=== PATIENT | male | born 1955 | race Caucasian/White ===

== ENCOUNTER → 2018-06-04 09:42 | Outpatient (CLI) | payer MEDICARE, OTHER, SELFPAY ==
[2018-06-04 13:36] LABS: Absolute Lymphocyte Count 1.48 X10^3/ul (0.83-4.51); Absolute Neutrophil Count 4.1 X10^3/uL (2.0-7.7); Basophil# 0.03 X10^3/uL; Basophil% 0.5 % (0-1); Eosinophil# 0.21 X10^3/uL; Eosinophils% 3.2 % (0-5); Hemoglobin 14.9 g/dl (13.0-16.5); Lymphocyte # 1.48 X10^3/ul (4.0); Lymphocyte % 22.5 % (19-41); Mean Corp Hgb Conc 33.9 g/gl (32-36); Mean Corpuscular Hgb 31.3 pg (27.0-32.0); Mean Corpuscular Volume 92.4 fL (80-94); Mean Platelet Vol. 10.6 fl (6.2-12.0); Monocyte# 0.73 X10^3/uL; Monocyte% 11.1 % (0-10); Neutrophil # 4.12 X10^3/uL (2.7-7.7); Neutrophil % 62.4 % (47-70); POSITIVE COUNT NO; POSITIVE DIFFERENTIAL NO; POSITIVE MORPHOLOGY NO; Platelet Count 342 K/mm3 (150-450); RBC Distribution Width CV 12.7 % (11.6-14.6); RBC Distribution Width SD 42.6 fl (35.1-43.9); Red Blood Count 4.76 M/mm3 (4.6-6.2); White Blood Count 6.6 K/mm3 (4.4-11.0)
[2018-06-04 13:55] LABS: Vitamin D,25 Hydroxy 26.1 ng/mL (29.95-100.01)
[2018-06-04 14:04] LABS: ALB/GLOB Ratio 1.3 RATIO (0.9-2.4); AST(SGOT) 25 U/L (15-37); Alanine Aminotransfer ALT/SGPT 36 U/L (16-61); Albumin, Serum 4.4 g/dL (3.2-5.0); Alkaline Phosphatase 86 U/L (45-117); Anion Gap 9 (5-15); BUN 23 mg/dL (7-18); BUN/Creat Ratio 21.7 RATIO (10-20); Calcium,Total 8.9 mg/dL (8.5-10.1); Chloride 104 mmol/L (98-107); Creatinine, Serum 1.06 mg/dL (0.70-1.30); EST Glomerular Filtration Rate 75 mL/min (>60); Est Glom Filt Rate - Afr Amer 90 mL/min (>60); Globulin 3.3 g/dL (2.2-4.2); Glucose 92 mg/dL (74-106); PSA,Total - Annual Screen 0.59 ng/mL (0.00-4.00); Potassium 4.1 mmol/L (3.5-5.1); Protein, Total 7.7 g/dL (6.4-8.2); Sodium Level 140 mmol/L (136-145); Thyroid Stim Hormone (TSH) 1.75 uIU/mL (0.358-3.74)
[2018-06-05 10:47] LABS: Hep C Antibodies <0.1 s/co ratio (0.0-0.9)
== END ==
PROVIDERS: Family Provider Family Medicine Geriatric Medicine; PCP Family Medicine Geriatric Medicine; Visit Provider Family Medicine Geriatric Medicine
DX: M54.16 Radiculopathy, lumbar region (principal); M25.569 Pain in unspecified knee; E55.9 Vitamin D deficiency, unspecified; I10 Essential (primary) hypertension; Z12.5 Encounter for screening for malignant neoplasm of prostate; Z13.89 Encounter for screening for other disorder
CPT/HCPCS: 36415; 72100; 73564; 80053; 82306; 84153; 84443; 85025; 86803; G0103

== ENCOUNTER → 2019-06-05 08:44 | Outpatient (CLI) | payer MEDICARE, OTHER, SELFPAY ==
[2019-06-05 11:04] LABS: Absolute Neutrophil Count 5.7 X10^3/uL (2.0-7.7); Basophil# 0.04 X10^3/uL; Basophil% 0.5 % (0-1); Eosinophil# 0.11 X10^3/uL; Eosinophils% 1.4 % (0-5); Hematocrit 43.2 % (40-54); Hemoglobin 14.6 g/dL (13.0-16.5); Lymphocyte % 17.7 % (19-41); Mean Corp Hgb Conc 33.8 g/dL (32-36); Mean Corpuscular Hgb 31.3 pg (27.0-32.0); Mean Corpuscular Volume 92.5 fL (80-94); Mean Platelet Vol. 10.2 fl (6.2-12.0); Monocyte# 0.58 X10^3/uL; Monocyte% 7.3 % (0-10); NRBC Flagged by Analyzer 0 % (0-5); Neutrophil # 5.73 X10^3/uL (2.7-7.7); Neutrophil % 72.5 % (47-70); Platelet Count 288 K/mm3 (150-450); RBC Distribution Width CV 14.2 % (11.6-14.6); RBC Distribution Width SD 48.2 fl (35.1-43.9); Red Blood Count 4.67 M/mm3 (4.6-6.2); White Blood Count 7.9 K/mm3 (4.4-11.0)
[2019-06-05 11:22] LABS: Vitamin D,25 Hydroxy 26.6 ng/mL (29.95-100.01)
[2019-06-05 11:30] LABS: ALB/GLOB Ratio 1.4 RATIO (0.9-2.4); AST(SGOT) 21 U/L (15-37); Alanine Aminotransfer ALT/SGPT 41 U/L (16-61); Albumin, Serum 4.1 g/dL (3.2-5.0); Alkaline Phosphatase 87 U/L (45-117); Anion Gap 5 (5-15); BUN 22 mg/dL (7-18); BUN/Creat Ratio 21.4 RATIO (10-20); Calcium,Total 8.7 mg/dL (8.5-10.1); Chloride 105 mmol/L (98-107); Creatinine, Serum 1.03 mg/dL (0.70-1.30); EST Glomerular Filtration Rate 77 mL/min (>60); Est Glom Filt Rate - Afr Amer 93 mL/min (>60); Glucose 138 mg/dL (74-106); PSA,Total - Annual Screen 0.58 ng/mL (0.00-4.00); Potassium 3.8 mmol/L (3.5-5.1); Protein, Total 7.1 g/dL (6.4-8.2); Sodium Level 139 mmol/L (136-145); Thyroid Stim Hormone (TSH) 1.53 uIU/mL (0.358-3.74)
== END ==
PROVIDERS: Family Provider Family Medicine Geriatric Medicine; PCP Family Medicine Geriatric Medicine; Visit Provider Family Medicine Geriatric Medicine
DX: E55.9 Vitamin D deficiency, unspecified (principal); I10 Essential (primary) hypertension; Z12.5 Encounter for screening for malignant neoplasm of prostate
CPT/HCPCS: 36415; 80053; 82306; 84153; 84443; 85025; G0103

== ENCOUNTER 2020-02-06 20:19 | Emergency (ER) | payer MEDICARE, OTHER, SELFPAY ==
--- NOTE | 2020-02-06 20:22 | CM.ED ---
SOCIAL WORK RESPONDED TO STROKE ALERT. PATIENT BEING TAKEN TO CT. WILL REMAIN AVAILABLE FOR NEEDS. Alee WELLS, COOKING CHEF, AUTOMATIC BUFFER.
--- NOTE | 2020-02-06 20:22 | EKG12_ITS ---
Test Reason : NEURO Blood Pressure : / mmHG Vent. Rate : 065 BPM Atrial Rate : 065 BPM P-R Int : 186 ms QRS Dur : 098 ms QT Int : 434 ms P-R-T Axes : 039 -21 008 degrees QTc Int : 451 ms Normal sinus rhythm Voltage criteria for left ventricular hypertrophy Abnormal ECG Confirmed by AMINATA NIEVES, GORDON ([id number]), society editor JANINE THORPE ([id number]) on 02/10/2020 2:22:41 PM Referred By: KATHIE Confirmed By:GORDON COATES MD
--- NOTE | 2020-02-06 20:22 | CT_ITS ---
We are attempting to reach an attending provider to discuss findings. An addendum with communication details will be sent when the communication is complete. STUDY: CT BRAIN WITHOUT CONTRAST REASON FOR EXAM: Male, 64 years old. CVA RADIATION DOSAGE (If Supplied By Facility): CTDIvol = ( 44.99 ) mGy, DLP = ( 812.98 ) mGycm TECHNIQUE: Transaxial CT imaging of the brain was performed without administration of intravenous contrast material. Individualized dose optimization techniques were used for this CT. COMPARISON: No relevant priors. FINDINGS: Normal soft tissue structures. Normal calvarium. Calcification of cavernous carotids and vertebral arteries.. Mild cortical atrophy for the patient''s age. Mild periventricular white matter ischemic changes Normal basal ganglia and thalami. Normal brainstem. Normal cerebellum. There is no intracranial hemorrhage. There are no findings of an acute ischemic infarction. Normal visualized paranasal sinuses. CT/Brain/Head without Contrast IMPRESSION: Mild periventricular white matter ischemic change. No evidence for acute bleed. If concern for acute infarct MRI recommended. Electronically Signed: Rocky Andre MD at 21:05 EDT , Service support ,
[2020-02-06 20:26] VITALS: BP 131/85; PULSE 68; RESP 19; TEMP 35.8; O2SAT 94
[2020-02-06 20:33] VITALS: BP 131/85; PULSE 68; RESP 19; TEMP 35.8; O2SAT 94; BMI 31.8
[2020-02-06 20:35] VITALS: O2SAT 95
[2020-02-06 20:37] VITALS: BMI 31.8
--- NOTE | 2020-02-06 20:42 | ED.VIS.GEN ---
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 Per EMS report called EMS when she noted slurred speech and uncoordination to his right leg. She last saw him at 10 PM last evening and it was normal at that time. Blood sugar was 118. - Past Medical History (1) Hypertension Status: Chronic (2) High cholesterol Status: Chronic Past Medical History - Allergies and Home Meds Allergies/Adverse Reactions: Allergies No Known Allergies Allergy (Verified 02/06/20 20:36) Primary Care Physician: Donny Abbasi Chi, MD [Primary Care Provider] - Prior records reviewed: Yes Lives: Spouse/ Significant Other Smoking Status: Never smoker Review of Systems General: Denies: Chills, Fever Eyes: Denies: Visual changes - bilaterally ENT: Denies: Bilateral ear pain Cardiovascular: Denies: Chest pain Respiratory: Denies: Dyspnea, Cough Gastrointestinal: Denies: Abdominal pain, Nausea, Vomiting, Diarrhea Genitourinary: Denies: Dysuria Musculoskeletal: Denies: Extremity Pain Neurological: Denies: Headache, Parasthesia Endocrine: Denies: Polyuria, Polydipsia Allergy: Denies: Uticaria Physical Exam Vital Signs/Narrative: Vital Signs Temp Pulse Resp BP Pulse Ox 02/06/20 20:35 95 02/06/20 20:33 96.5 F L 68 19 H 131/85 H 94 02/06/20 20:26 96.5 F L 68 19 H 131/85 H 94 Inital Vital Signs reviewed: Yes General: Well nourished, Well developed Head: Normocephalic ENT: Moist mucous membranes Neck: Supple Cardiovascular: Regular rate, Regular rhythm Respiratory: No distress, CTA bilaterally Abdomen: Soft, Nontender Skin: Normal color Neurological: Alert, Oriented x3, - - On arrival patient had very mild drift of his left lower extremity on testing. NIH equals 1. Psychological: Normal affect Diagnostic/Tx/Re-eval Impressions Brain CT 02/06/20 20:22 IMPRESSION: Mild periventricular white matter ischemic change. No evidence for acute bleed. If concern for acute infarct MRI recommended. Electronically Signed: Rocky Andre MD at 21:05 EDT , Service support , ADDENDUM: 02/06/202113 IMPRESSION: Mild periventricular white matter ischemic change. No evidence for acute bleed. If concern for acute infarct MRI recommended. N.B. : The above information has been verbally conveyed by Rocky Andre MD to Jhon Bernabe MD, on 02/06/2020 21:07:33 (ET). Electronically Signed: Rocky Andre MD at 21:05 EDT , Service support , Chest X-Ray 02/06/20 20:55 IMPRESSION: Diminished inspiratory effort. No acute disease Electronically Signed: Rocky Andre MD at 21:14 EDT , Service support , 02/06/20 20:22 Brain/Head without Contrast [CT] Stat 02/06/20 20:55 Chest 1 View [RAD] Stat Laboratory Results 02/06/20 02/06/20 02/06/20 20:39 20:39 20:39 WBC 8.3 RBC 4.74 Hgb 15.0 Hct 44.0 MCV 92.8 MCH 31.6 MCHC 34.1 RDW Std Deviation 43.2 RDW Coeff of Justo 12.8 Plt Count 265 MPV 9.8 Immature Gran % (Auto) 0.400 Neut % (Auto) 58.7 Lymph % (Auto) 25.5 Henry % (Auto) 13.2 H Eos % (Auto) 1.5 Baso % (Auto) 0.7 Absolute Neuts (auto) 4.9 Absolute Lymphs (auto) 2.11 Nucleated RBC % 0 PT 12.7 INR 1.0 APTT 29.8 Sodium 139 Potassium 3.8 Chloride 102 Carbon Dioxide 29.0 Anion Gap 8 BUN 17 Creatinine 0.92 Estim Creat Clear Calc 76.41 Est GFR (MDRD) Af Amer 106 Est GFR (MDRD) Non-Af 88 BUN/Creatinine Ratio 18.6 Glucose 97 Calcium 9.0 Troponin I < 0.015 - EKG Initial EKG Interpretation: Sinus Rhythm - Sinus at 65 with no acute ischemia. - Medical Decision Making Patient was met inside the EMS doors. Initial evaluation was quickly performed with an NIH of 1 at most. Patient was taken to CT and upon return patient admitted that there was more to the story. He did admit at that time that patient had an outpatient vasectomy performed this afternoon. He was given medication for sedation for the procedure. His is not aware that he had this performed. Patient states that he was just tired, but otherwise feels his normal self. Repeat evaluation patient's resting comfortably. He is requesting discharge to home. He was able to get up and ambulate up and down the hallway with nursing staff with steady gait. I believe his symptoms are secondary to sedation from the medications he was given earlier today. He will be discharged home. ED Disposition - Plan for ED Patient: Disposition: Home or Assisted Living Diagnosis: Weakness Instructions: ED Weakness [facility] Referrals: Donny Abbasi Chi, MD [Primary Care Provider] -
--- NOTE | 2020-02-06 20:55 | RAD_ITS ---
STUDY: X-RAY CHEST REASON FOR EXAM: Male, 64 years old. STROKE TECHNIQUE: AP portable COMPARISON: None. FINDINGS: Less than optimal inspiratory effort is seen however the lungs are clear.. There is no demonstrated pleural abnormality. Normal size heart. Normal mediastinum and eber. Normal visualized pulmonary arteries. Normal visualized aortic arch and descending thoracic aorta. Dorsal spine demonstrates degenerative change Normal visualized ribs, clavicles, and shoulders. Small hiatal hernia is noted There is no demonstrated abnormality of the visualized soft tissue structures of the upper abdomen. RAD/Chest 1 View IMPRESSION: Diminished inspiratory effort. No acute disease Electronically Signed: Rocky Andre MD at 21:14 EDT , Service support ,
[2020-02-06 21:03] LABS: Absolute Lymphocyte Count 2.11 X10^3/uL (0.83-4.51); Absolute Neutrophil Count 4.9 X10^3/uL (2.0-7.7); Basophil# 0.06 X10^3/uL; Basophil% 0.7 % (0-1); Eosinophil# 0.12 X10^3/uL; Eosinophils% 1.5 % (0-5); Lymphocyte # 2.11 X10^3/ul (4.0); Lymphocyte % 25.5 % (19-41); Mean Corp Hgb Conc 34.1 g/dL (32-36); Mean Corpuscular Hgb 31.6 pg (27.0-32.0); Mean Corpuscular Volume 92.8 fL (80-94); Mean Platelet Vol. 9.8 fl (6.2-12.0); Monocyte# 1.09 X10^3/uL; Monocyte% 13.2 % (0-10); NRBC Flagged by Analyzer 0 % (0-5); Neutrophil # 4.85 X10^3/uL (2.7-7.7); Neutrophil % 58.7 % (47-70); Platelet Count 265 K/mm3 (150-450); RBC Distribution Width CV 12.8 % (11.6-14.6); RBC Distribution Width SD 43.2 fl (35.1-43.9); Red Blood Count 4.74 M/mm3 (4.6-6.2); White Blood Count 8.3 K/mm3 (4.4-11.0)
[2020-02-06 21:08] LABS: Partial Thromboplast Time 29.8 Seconds (24.1-36.2); Prothrombin Time (Protime)PT. 12.7 SECONDS (11.7-14.9)
[2020-02-06 21:09] LABS: Anion Gap 8 (5-15); BUN 17 mg/dL (7-18); BUN/Creat Ratio 18.6 RATIO (10-20); Chloride 102 mmol/L (98-107); Creatinine, Serum 0.92 mg/dL (0.70-1.30); EST Glomerular Filtration Rate 88 mL/min (>60); Est Glom Filt Rate - Afr Amer 106 mL/min (>60); Estimated Creatinine Clearance 76.41 ml/min; Glucose 97 mg/dL (74-106); Potassium 3.8 mmol/L (3.5-5.1); Sodium Level 139 mmol/L (136-145)
[2020-02-06 21:31] VITALS: BP 110/96; PULSE 69; RESP 17; O2SAT 96
[2020-02-06 22:16] VITALS: BP 110/96; PULSE 65; PULSE 74; RESP 14; RESP 16; O2SAT 93
== END 2020-02-06 22:29 | disposition home or self-care (01) ==
PROVIDERS: Emergency Provider Emergency Medicine; PCP Family Medicine Geriatric Medicine
DX: R53.1 Weakness (principal)
CPT/HCPCS: 70450; 71045; 80048; 84484; 85025; 85610; 85730; 93005; 99285; A4216

== ENCOUNTER → 2020-03-09 15:06 | Outpatient (CLI) | payer MEDICARE, OTHER, SELFPAY ==
--- NOTE | 2020-03-09 15:20 | RAD_ITS ---
STUDY: X-RAY - LUMBAR SPINE REASON FOR EXAM: Male, 64 years old. Left leg pain x 4 weeks. NKI TECHNIQUE: 3 view(s) of the lumbar spine were obtained. COMPARISON: 06/04/2018 FINDINGS: Normal lumbar lordosis. There is no substantial scoliosis. There is a normal alignment of the vertebrae. There is diffuse demineralization with multi-level endplate spondylosis. There is multi-level degenerative disc disease with multi-level disc space narrowing. There is no demonstrated fracture. There is atherosclerotic calcification of the abdominal aorta without a demonstrated aneurysm. RAD/Lumbar Spine 2 or 3 Views IMPRESSION: Degenerative changes of the spine, as detailed above. No acute findings Electronically Signed: Tito Anderson MD at 15:34 EDT , Service support ,
== END ==
PROVIDERS: PCP Family Medicine Geriatric Medicine; Visit Provider Family Medicine Geriatric Medicine
DX: M54.5 Low back pain (principal)
CPT/HCPCS: 72100

== ENCOUNTER 2020-03-17 08:54 | Outpatient (RCR) | payer MEDICARE, OTHER, SELFPAY ==
--- NOTE | 2020-03-17 10:22 | HP.PTEVAL ---
Patient's Visit Information MIKE TORIBIO is a 64 year old M referred to Physical Therapy by Dr. Donny Abbasi MD with a diagnosis of SCAITICA. Date of Evaluation: 03/17/20 Physical Therapist: Trav Kaufman, PT, Cert MDT, OCS - Visit Plan Frequency: 2x /Week Duration: 4 Weeks Plan: PT INTERVENTIONS DLS,POSTURAL EX'S ,WESLEY EX'S - Subjective This 64 y/o male presents to physical therapy with left sciatica. Patient developed left LBP about 6 weeks mostly left lateral leg. Aggraveting factors elevation from chair to walk ,sitting ride motorcycle . Symptoms better ,resting sitting. Seen 4 injections for pain and meds Pain gabepetin ,predisone,naproxen. Since seen Dr blue is better. Pain doesnt affects sleeping.Denies parathesia/tingling. Toady minor LBP.Bowel/bladder-. Coughing/sneezing-. Patient has h/o LBP . No prior PT. Patient symptoms affects QOL and function. SOCIAL; . 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 GAIT: reciprocal pattern. NEURO: denies parathesia/tingling ,reflexes L3-4,L4-5,L5-S1 1/3. PALAPTION: unremarkable. FLEXABLITY: hams mod tight,piriformis mod tigh. LUMBAR ROM: flexion min loss,extension min loss,sie glides min loss. MMT: quads/hams/hip 5/5,ankle 4/5 - Special Tests L/S Slump test left side: Negative L/S Slump test right side: Negative L/S Left Straight Leg Raise: Negative L/S Right Straight Leg Raise: Negative Lumbar Standing: Flexion - Mechanical Response: No effect Lumbar Standing: Flexion - Symptoms During Testing: No effect Lumbar Standing: Flexion - Symptoms After Testing: No effect Lumbar Standing: Extension - Mechanical Response: No effect Lumbar Standing: Extension - Symptoms During Testing: No effect Lumbar Standing: Extension - Symptoms After Testing: No effect Lumbar Standing: Right Side Glides - Mechanical Response: No effect Lumbar Standing: Right Side [place] - Symptoms During Testing: No effect Lumbar Standing: Right Side [place] - Symptoms After Testing: No effect Lumbar Standing: Left Side [place] - Mechanical Response: No effect Lumbar Standing: Left Side [place] - Symptoms During Testing: No effect Lumbar Standing: Left Side [place] - Symptoms After Testing: No effect - Goals Goal 1:: Independant with HEP Goal Time Frame: 4-6 Weeks Goal 2:: Pateint improve posture for ADL'S/job demnads Goal Time Frame: 4-6 Weeks Goal 3:: Pateint decrease back pain and radicular symptoms by 50% or > to improve function Goal Time Frame: 4-6 Weeks Goal 4:: Patient to increase lumbar ROM for function of recovery Goal Time Frame: 4-6 Weeks Goal 5:: Pateint improve back owestrty score by 5 points > to improve QOL Goal Time Frame: 4-6 Weeks - Rehabilitation Potential Physical Therapy Diagnosis: This patient has had lumbar radicualopathy but is better with MEDS and pain injection.But prior wosre with walking affecting ADLS' and job demands better with rest Rehabilitation Potential: Good - Anticipated Interventions Patient/Client Instruction: Educate patient on: Condition, Plan of Care For the Purpose of:: To decrease pain, To increase ROM, To improve muscle performance and motor function, To improve ability to perform ADL's, To increase tolerance to activity/condition/position, To improve ability of physical actions for home/community/work/leisure, To improve health of tissue, To decrease soft tissue restriction, To improve ability to perform tasks related to life management Therapeutic Exercise to Include: Strength training, Body mechanics, Postural training, Flexibilty training, Dynamic Lumbar Stabilization For the Purpose of:: To decrease pain, To increase ROM, To improve muscle performance and motor function, To increase tolerance to activity/condition/position, To improve ability of physical actions for home/community/work/leisure, To improve health of tissue, To decrease soft tissue restriction, To improve ability to perform tasks related to life management TENS: Yes IF ES: Yes Cryotherapy (ice pack, ice massage): Yes Thermo therapy (hot pack): Yes Ultrasound (thermal/non thermal): Yes For the Purpose of:: To decrease pain, To increase ROM, To improve nutrient delivery to tissue, To increase oxygenation perfusion, To improve health of tissue, To decrease soft tissue restriction, To improve ability to perform tasks related to life management Thank you for the opportunity to evaluate your patient. For Medicare and Medicare HMO plans, please review the plan of care and approve it. It will need to be FAXED BACK to us at [phone] for Medicare purposes. For Medicare only, by signing this I certify the plan of care. Please let me know if there are questions or concerns regarding this plan of care. Physician Signature: Date:
== END 2020-03-17 19:00 | disposition home or self-care (01) ==
LOC: PT 08:54
PROVIDERS: PCP Family Medicine Geriatric Medicine; Referring Provider Family Medicine Geriatric Medicine; Visit Provider Family Medicine Geriatric Medicine
DX: M54.30 Sciatica, unspecified side (principal)
CPT/HCPCS: 97110; 97162

== ENCOUNTER → 2020-06-09 13:38 | Outpatient (CLI) | payer MEDICARE, OTHER, SELFPAY ==
[2020-06-09 15:46] LABS: Absolute Lymphocyte Count 1.87 X10^3/uL (0.83-4.51); Absolute Neutrophil Count 6.3 X10^3/uL (2.0-7.7); Basophil# 0.05 X10^3/uL; Basophil% 0.5 % (0-1); Eosinophil# 0.11 X10^3/uL; Eosinophils% 1.2 % (0-5); Hematocrit 42.5 % (40-54); Hemoglobin 14.5 g/dL (13.0-16.5); Lymphocyte # 1.87 X10^3/ul (4.0); Lymphocyte % 20.2 % (19-41); Mean Corp Hgb Conc 34.1 g/dL (32-36); Mean Corpuscular Hgb 32.5 pg (27.0-32.0); Mean Corpuscular Volume 95.3 fL (80-94); Mean Platelet Vol. 10.3 fl (6.2-12.0); Monocyte# 0.91 X10^3/uL; Monocyte% 9.8 % (0-10); NRBC Flagged by Analyzer 0 % (0-5); Neutrophil # 6.28 X10^3/uL (2.7-7.7); Neutrophil % 67.8 % (47-70); Platelet Count 292 K/mm3 (150-450); RBC Distribution Width CV 13.1 % (11.6-14.6); RBC Distribution Width SD 45.1 fl (35.1-43.9); Red Blood Count 4.46 M/mm3 (4.6-6.2); White Blood Count 9.3 K/mm3 (4.4-11.0)
[2020-06-09 16:09] LABS: Vitamin D,25 Hydroxy 33.7 ng/mL
[2020-06-09 16:14] LABS: ALB/GLOB Ratio 1.3 RATIO (0.9-2.4); AST(SGOT) 28 U/L (15-37); Alanine Aminotransfer ALT/SGPT 41 U/L (16-61); Albumin, Serum 4.1 g/dL (3.2-5.0); Alkaline Phosphatase 76 U/L (45-117); Anion Gap 6 (5-15); BUN 17 mg/dL (7-18); BUN/Creat Ratio 16.3 RATIO (10-20); Calcium,Total 8.8 mg/dL (8.5-10.1); Chloride 104 mmol/L (98-107); Creatinine, Serum 1.04 mg/dL (0.70-1.30); EST Glomerular Filtration Rate 76 mL/min (>60); Est Glom Filt Rate - Afr Amer 92 mL/min (>60); Globulin 3.1 g/dL (2.2-4.2); Glucose 104 mg/dL (74-106); Potassium 3.6 mmol/L (3.5-5.1); Protein, Total 7.2 g/dL (6.4-8.2); Sodium Level 137 mmol/L (136-145); Thyroid Stim Hormone (TSH) 1.46 uIU/mL (0.358-3.74)
== END ==
PROVIDERS: PCP Family Medicine Geriatric Medicine; Visit Provider Family Medicine Geriatric Medicine
DX: E55.9 Vitamin D deficiency, unspecified (principal); I10 Essential (primary) hypertension
CPT/HCPCS: 36415; 80053; 82306; 84443; 85025

== ENCOUNTER → 2020-07-29 15:29 | Outpatient (CLI) | payer MEDICARE, OTHER, SELFPAY ==
--- NOTE | 2020-07-29 15:44 | MRI_ITS ---
HISTORY: Low back pain. Progressive neurological deficit. Left leg pain. Back pain. Nerve pain down left leg to ankle. Patient had some shots to relieve pain. Hernia surgery. Cyst removal from finger. Technique: Sagittal T1-T2 and STIR axial T1 and T2-weighted images were obtained through the lumbar spine. Most recent x-rays of the lumbar spine available for comparison are from March 09, 2020. EXAMINATION: MR Spine Lumbar W/O Contrast TECHNIQUE: Multiplanar and multisequence MR images of the lumbar spine. IV Contrast dosage and agent: None. COMPARISON: X-rays of the lumbar spine from March 09, 2020 FINDINGS: VERTEBRAE: Normal vertebral body heights, alignment and lordosis. Marrow signal intensity is normal. No expansile or destructive lesion. CORD: Normal visualized portions of the spinal cord and cauda equina, with the tip of the conus medullaris at the T12 level. No intradural or intramedullary soft tissue mass or epidural fluid collection. SOFT TISSUES: Unremarkable. L1/L2: Facet arthropathy, ligamentum thickening contribute to no significant spinal canal stenosis. L2/L3: Facet arthropathy and ligamentous thickening are slightly greater. No significant disc disease. No significant spinal canal stenosis. L3/L4: Facet arthropathy and ligamentum thickening again are present. No significant disc disease. No significant spinal canal stenosis. L4/L5: Facet arthropathy and ligament thickening are greater. Small disc bulge. Mild to moderate spinal canal stenosis. No definitive nerve impingement. L5/S1: Some ligamental thickening and facet arthropathy. MRI/Spine Lumbar (Routine) IMPRESSION: Facet arthropathy, ligamentum thickening, and small disc bulge at the L4-L5 level causing moderate spinal canal stenosis. No definitive nerve impingement perceived. at 0618 Reported and signed by: Sung Ware MD Electronically Signed: Sung Ware MD at 6:17 EDT Tel , Service support ,
== END ==
PROVIDERS: PCP Family Medicine Geriatric Medicine; Referring Provider Family Medicine Geriatric Medicine; Visit Provider Family Medicine Geriatric Medicine
DX: M51.26 Other intervertebral disc displacement, lumbar region (principal); M48.061 Spinal stenosis, lumbar region without neurogenic claudication
CPT/HCPCS: 72148

== ENCOUNTER → 2020-08-27 16:43 | Outpatient (CLI) | payer MEDICARE, OTHER, SELFPAY ==
[2020-08-27 17:08] LABS: Hematocrit 43.7 % (40-54); Hemoglobin 14.8 g/dL (13.0-16.5)
== END ==
PROVIDERS: PCP Family Medicine Geriatric Medicine; Visit Provider Family Medicine Geriatric Medicine
DX: D50.9 Iron deficiency anemia, unspecified (principal)
CPT/HCPCS: 36415; 85014; 85018

== ENCOUNTER → 2021-03-17 06:17 | Outpatient (CLI) | payer MEDICARE, OTHER, SELFPAY ==
--- NOTE | 2021-03-17 14:59 | NEURO ---
NCS and/or EMG Patient Report Ordering Doctor: Irving Pearson DATE OF SERVICE: 03/17/21 Waldemar Chau presents for electrodiagnostic testing of the lower limbs. He reports intermittent weakness in the left lower limb with occasional back pain. Electrodiagnostic findings: Peroneal motor nerve demonstrates normal distal latency, amplitude and conduction velocity bilaterally. Normal tibial motor responses noted bilaterally. Sensory responses are within normal limits. On needle EMG, all muscles tested in the lower limbs show no evidence of denervation with normal motor unit action potentials. Electrodiagnostic impression: This is a normal electrodiagnostic study in the lower limbs. There is no electrodiagnostic evidence for peripheral neuropathy or lumbosacral radiculopathy
== END ==
PROVIDERS: PCP Family Medicine Geriatric Medicine; Referring Provider Anesthesiology Pain Medicine; Visit Provider Anesthesiology Pain Medicine
DX: M79.605 Pain in left leg (principal)
CPT/HCPCS: 95886; 95912

== ENCOUNTER → 2021-06-10 10:11 | Outpatient (CLI) | payer MEDICARE, OTHER, SELFPAY ==
[2021-06-10 10:49] LABS: Absolute Lymphocyte Count 1.34 X10^3/uL (0.83-4.51); Absolute Neutrophil Count 7.9 X10^3/uL (2.0-7.7); Basophil# 0.06 X10^3/uL; Basophil% 0.6 % (0-1); Eosinophil# 0.09 X10^3/uL; Eosinophils% 0.9 % (0-5); Hematocrit 47.3 % (40-54); Hemoglobin 15.7 g/dL (13.0-16.5); Lymphocyte # 1.34 X10^3/ul (0.83-4.51); Lymphocyte % 12.8 % (19-41); Mean Corp Hgb Conc 33.2 g/dL (32-36); Mean Corpuscular Hgb 31.3 pg (27.0-32.0); Mean Corpuscular Volume 94.4 fL (80-94); Mean Platelet Vol. 9.5 fl (6.2-12.0); Monocyte# 0.96 X10^3/uL; Monocyte% 9.2 % (0-10); NRBC Flagged by Analyzer 0 % (0-5); Neutrophil # 7.92 X10^3/uL (2.7-7.7); Neutrophil % 75.7 % (47-70); Platelet Count 319 K/mm3 (150-450); RBC Distribution Width CV 12.4 % (11.6-14.6); RBC Distribution Width SD 43.1 fl (35.1-43.9); Red Blood Count 5.01 M/mm3 (4.6-6.2); White Blood Count 10.5 K/mm3 (4.4-11.0)
[2021-06-10 11:32] LABS: Vitamin D,25 Hydroxy 32.4 ng/mL
[2021-06-10 11:37] LABS: AST(SGOT) 17 U/L (15-37); Alanine Aminotransfer ALT/SGPT 43 U/L (16-61); Albumin, Serum 3.9 g/dL (3.2-5.0); Alkaline Phosphatase 76 U/L (45-117); Anion Gap 1 (5-15); BUN 22 mg/dL (7-18); BUN/Creat Ratio 25.9 RATIO (10-20); Calcium,Total 9.2 mg/dL (8.5-10.1); Chloride 103 mmol/L (98-107); Creatinine, Serum 0.85 mg/dL (0.70-1.30); EST Glomerular Filtration Rate 95 mL/min (>60); Est Glom Filt Rate - Afr Amer 115 mL/min (>60); Globulin 3.9 g/dL (2.2-4.2); Glucose 95 mg/dL (74-106); Protein, Total 7.8 g/dL (6.4-8.2); Sodium Level 134 mmol/L (136-145); Thyroid Stim Hormone (TSH) 1.41 uIU/mL (0.358-3.74)
== END ==
PROVIDERS: PCP Family Medicine Geriatric Medicine; Referring Provider Family Medicine Geriatric Medicine; Visit Provider Family Medicine Geriatric Medicine
DX: I10 Essential (primary) hypertension (principal); E55.9 Vitamin D deficiency, unspecified; Z12.5 Encounter for screening for malignant neoplasm of prostate
CPT/HCPCS: 36415; 80053; 82306; 84153; 84443; 85025; G0103

== ENCOUNTER → 2022-06-16 | Outpatient (CLI) | payer MEDICARE, OTHER, SELFPAY ==
[2022-06-16 12:20] LABS: Absolute Lymphocyte Count 1.52 X10^3/uL (0.83-4.51); Absolute Neutrophil Count 5.1 X10^3/uL (2.0-7.7); Basophil# 0.03 X10^3/uL; Basophil% 0.4 % (0-1); Eosinophil# 0.07 X10^3/uL; Eosinophils% 0.9 % (0-5); Hematocrit 45.9 % (40-54); Lymphocyte # 1.52 X10^3/ul (0.83-4.51); Lymphocyte % 20.1 % (19-41); Mean Corp Hgb Conc 34.9 g/dL (32-36); Mean Corpuscular Hgb 32.7 pg (27.0-32.0); Mean Corpuscular Volume 93.9 fL (80-94); Mean Platelet Vol. 10.5 fl (6.2-12.0); Monocyte# 0.76 X10^3/uL; Monocyte% 10.1 % (0-10); NRBC Flagged by Analyzer 0 % (0-5); Neutrophil # 5.14 X10^3/uL (2.7-7.7); Neutrophil % 68.1 % (47-70); Platelet Count 286 K/mm3 (150-450); RBC Distribution Width SD 44.7 fl (35.1-43.9); Red Blood Count 4.89 M/mm3 (4.6-6.2); White Blood Count 7.6 K/mm3 (4.4-11.0)
[2022-06-16 12:38] LABS: Vitamin D,25 Hydroxy 30.2 ng/mL
[2022-06-16 12:57] LABS: ALB/GLOB Ratio 1.1 RATIO (0.9-2.4); AST(SGOT) 26 U/L (15-37); Alanine Aminotransfer ALT/SGPT 44 U/L (16-61); Albumin, Serum 3.8 g/dL (3.2-5.0); Alkaline Phosphatase 72 U/L (45-117); Anion Gap 8 (5-15); BUN 17 mg/dL (7-18); BUN/Creat Ratio 18.9 RATIO (10-20); Calcium,Total 9.1 mg/dL (8.5-10.1); Chloride 104 mmol/L (98-107); EST Glomerular Filtration Rate 89 mL/min (>60); Est Glom Filt Rate - Afr Amer 108 mL/min (>60); Globulin 3.5 g/dL (2.2-4.2); Glucose 104 mg/dL (74-106); PSA,Total - Annual Screen 0.51 ng/mL (0.00-4.00); Potassium 3.9 mmol/L (3.5-5.1); Protein, Total 7.3 g/dL (6.4-8.2); Sodium Level 137 mmol/L (136-145); Thyroid Stim Hormone (TSH) 1.25 uIU/mL (0.358-3.74)
== END | disposition home or self-care (01) ==
LOC: POLAB3 09:06
PROVIDERS: PCP Family Medicine Geriatric Medicine; Visit Provider Family Medicine Geriatric Medicine
DX: I10 Essential (primary) hypertension (principal); E55.9 Vitamin D deficiency, unspecified; Z12.5 Encounter for screening for malignant neoplasm of prostate
CPT/HCPCS: 36415; 80053; 82306; 84153; 84443; 85025; G0103

== ENCOUNTER → 2023-06-22 | Outpatient (CLI) | payer MEDICARE, OTHER, SELFPAY ==
[2023-06-22 11:27] LABS: Absolute Lymphocyte Count 1.49 X10^3/uL (0.83-4.51); Absolute Neutrophil Count 6.2 X10^3/uL (2.0-7.7); Basophil# 0.07 X10^3/uL; Basophil% 0.8 % (0-1); Eosinophil# 0.09 X10^3/uL; Hemoglobin 15.8 g/dL (13.0-16.5); Lymphocyte # 1.49 X10^3/ul (0.83-4.51); Lymphocyte % 17.1 % (19-41); Mean Corp Hgb Conc 32.9 g/dL (32-36); Mean Corpuscular Volume 94.1 fL (80-94); Mean Platelet Vol. 10.3 fl (6.2-12.0); Monocyte# 0.84 X10^3/uL; Monocyte% 9.7 % (0-10); NRBC Flagged by Analyzer 0 % (0-5); Neutrophil # 6.15 X10^3/uL (2.7-7.7); Neutrophil % 70.7 % (47-70); Platelet Count 283 K/mm3 (150-450); RBC Distribution Width CV 13.5 % (11.6-14.6); White Blood Count 8.7 K/mm3 (4.4-11.0)
[2023-06-22 11:35] LABS: Vitamin D,25 Hydroxy 37.4 ng/mL
[2023-06-22 11:52] LABS: ALB/GLOB Ratio 1.1 RATIO (0.9-2.4); AST(SGOT) 21 U/L (15-37); Alanine Aminotransfer ALT/SGPT 41 U/L (16-61); Albumin, Serum 3.7 g/dL (3.2-5.0); Alkaline Phosphatase 81 U/L (45-117); Anion Gap 5 (5-15); BUN 19 mg/dL (7-18); BUN/Creat Ratio 20.5 RATIO (10-20); Calcium,Total 9.6 mg/dL (8.5-10.1); Chloride 103 mmol/L (98-107); Creatinine, Serum 0.93 mg/dL (0.70-1.30); EST Glomerular Filtration Rate 85 mL/min (>60); Est Glom Filt Rate - Afr Amer 103 mL/min (>60); Globulin 3.4 g/dL (2.2-4.2); Glucose 108 mg/dL (74-106); PSA,Total - Annual Screen 0.57 ng/mL (0.00-4.00); Protein, Total 7.1 g/dL (6.4-8.2); Sodium Level 136 mmol/L (136-145); Thyroid Stim Hormone (TSH) 2.73 uIU/mL (0.358-3.74)
== END | disposition home or self-care (01) ==
LOC: POLAB3 09:02
PROVIDERS: PCP Family Medicine Geriatric Medicine; Visit Provider Family Medicine Geriatric Medicine
DX: I10 Essential (primary) hypertension (principal); E55.9 Vitamin D deficiency, unspecified; Z12.5 Encounter for screening for malignant neoplasm of prostate
CPT/HCPCS: 36415; 80053; 82306; 84153; 84443; 85025; G0103

== ENCOUNTER 2023-11-01 11:00 | Outpatient (RCR) | payer MEDICARE, OTHER, SELFPAY ==
--- NOTE | 2023-08-30 14:10 | HP.PTEVAL ---
Patient's Visit Information Visit Information Visit Information: MIKE TORIBIO is a 68 year old M referred to Physical Therapy by Dr. Hermelindo Red DPM with a diagnosis of B Achilles Tendonitis. Date of Evaluation: 08/30/23 Physical Therapist: Venus Jones MPT Visit Plan Frequency: 2-3x /Week Duration: 6 Weeks Plan: 2-3X/ week for 6 weeks (pt requests 2X/ week) for foam/stick rolling to B gastroc, stretching of B achilles/gastroc and HS, grasten to B achilles and calf, strength of B ankles, balance and proprioception with HEP HEP: towel gastroc stretching, HS stretch in supine with green strap Subjective Subjective: Pt reports that he has a small bone spur hitting his B Achilles. He used to play tennis until 58 and it hurt. He gets 6500 steps a day. He hurts few steps in morning. He usually walks stiff legged so he does not hurt. Going down steps hurts. He has no night pain. He does not hurt much except when he hurts. He has tried shoe inserts and Dr has given him inserts and they do help. He wears good shoes and the Dr checked his shoes and said they were fine. He has not tried cortisone shots or meds. He would like to play tennis again. 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 R DF 22.8 and L 17.6 R PF 13.1 and L PF 16.3 R AROM DF 1, PF 64, INV 27, EV 15 L AROML DF 12, PF 60, INV 28, EV 15 Tight gastroc B but worse on the R Palpation: tender medial and lateral side of the R achilles and no real tenderness along the L achilles. Tender along the lateral side of the R gastroc also Balance/Special Test Scores Lower Extremity Functional Score: 63 Goals Goal 1:: I HEP Goal Time Frame: 6-8 Weeks Goal 2:: Increase R ankle AROM (at the time of the eval: R AROM DF 1, PF 64, INV 27, EV 15 L AROML DF 12, PF 60, INV 28, EV 15) Goal Time Frame: 6-8 Weeks Goal 3:: Be able to walk without having pain B achilles Goal Time Frame: 6-8 Weeks Goal 4:: Increase ankle strength (at the time of the eval: R DF 22.8 and L 17.6 R PF 13.1 and L PF 16.3) Goal Time Frame: 6-8 Weeks Rehabilitation Potential Rehabilitation Potential: Good Anticipated Interventions Patient/Client Instruction: Educate patient on: Condition and Plan of Care For the Purpose of:: To decrease pain, To decrease swelling/inflammation, To increase ROM, To improve nutrient delivery to tissue, To improve muscle performance and motor function, To improve ability to perform ADL's, To increase tolerance to activity/condition/position, To improve performance and independence with ADL's, To decrease level of supervision to perform tasks, To improve ability of physical actions for home/community/work/leisure, To improve gait and locomotor functions, To improve health of tissue, To decrease soft tissue restriction, To increase flexibility/ROM, To improve balance and To improve safety with gait Therapeutic Exercise to Include: Strength training, Flexibilty training, Gait and locomotor training and Active ROM For the Purpose of:: To decrease pain, To decrease swelling/inflammation, To increase ROM, To improve nutrient delivery to tissue, To increase oxygenation perfusion, To improve muscle performance and motor function, To improve ability to perform ADL's, To increase tolerance to activity/condition/position, To improve performance and independence with ADL's, To decrease level of supervision to perform tasks, To improve ability of physical actions for home/community/work/leisure, To improve gait and locomotor functions, To improve health of tissue, To decrease soft tissue restriction and To increase flexibility/ROM Functional Training to Include: Gait training For the Purpose of:: To improve gait and locomotor functions Manual Therapy Techniques to Include: Passive ROM and Soft tissue mobilization For the Purpose of:: To decrease pain, To increase ROM, To improve nutrient delivery to tissue, To improve muscle performance and motor function, To improve ability to perform ADL's, To improve health of tissue, To decrease soft tissue restriction and To increase flexibility/ROM Text: Thank you for the opportunity to evaluate your patient. For Medicare and Medicare HMO plans, please review the plan of care and approve it. It will need to be FAXED BACK to us at [phone] for Medicare purposes. For Medicare only, by signing this I certify the plan of care. Please let me know if there are questions or concerns regarding this plan of care. Physician Signature: Date:
--- NOTE | 2023-09-18 13:39 | HP.PTDCSUM ---
Discharge Summary D/C summary: It has been my pleasure to treat MIKE TORIBIO referred by Dr. Hermelindo Red DPMarisol, with the diagnosis of B Achilles Tendonitis for a total of 6 visit(s). Discharge Date: 09/18/23 Please see the following information for a summary of their discharge status. Subjective Subjective: Pt has learned a lot and figures he has had it for 5 years. He has learned a lot of exercises and a plan to do all the exercises that we have given him. He soaks his feet at night. He does not think that PT has helped. The Dr and him have not talked about the next step.. He sees the Dr on the . He plans on doing the exercises forever. Today he did the TM and stretched. He is able to walk 20 min on the TM at 3.3 mph... he cant walk like he used to Pain R Achilles pain: Pain Intensity (Out of 10): 1 L Achilles pain: Pain Intensity (Out of 10): 1 Overall Improvement % Improvement: 40 Objective Objective/Function: R DF 17.4 L DF 18.8 R AROM DF 10, L AROML DF 12 Goals Goal 1:: I HEP Goal Progress: Goal Met Goal 2:: Increase R ankle AROM (at the time of the eval: R AROM DF 1, PF 64, INV 27, EV 15 L AROML DF 12, PF 60, INV 28, EV 15) Goal Progress: Goal Met Goal 3:: Be able to walk without having pain B achilles Goal Progress: Progressing Goal 4:: Increase ankle strength (at the time of the eval: R DF 22.8 and L 17.6 R PF 13.1 and L PF 16.3) Goal Progress: Goal Met Plan Plan: Pt is indep in HEP and wishes to continue to do it at home. DC PT D/C Information Discharge Comments: DC PT to indep HEP d/c sentence: If there are questions or concerns regarding this patient's physical therapy, please feel free to call me at [phone]. Thank you for the referral of this patient. Sincerely, Venus Jones, MPT Balance/Gait/Functional tests Balance/Special Test Scores Lower Extremity Functional Score: 63 Improvement % Improvement: 40
--- NOTE | 2023-10-12 09:52 | HP.PTREVAL ---
Re-Evaluation Intro: Dr. Hermelindo Red, DPM, It has been my pleasure to treat MIKE TORIBIO over the last 7 visits for B Achilles Tendonitis. Please see the progress note below for an update on the physical therapy plan of care! Subjective Subjective: Pt had an injection in the R foot and he has 8 days of no pain and it has been great. He has no pain in the L. He is still doing the stretches at home. He went overboard and so his calves hurt more than his feet and so now he is not sure how often he should do it. Dr said to continue therapy for [address] wants him to continue PT to make sure he gets better. No calf pain either. Objective Objective/Function: Pt struggles with eccentric strength of B achilles Still a little tight on the R gastroc compared to the L. Plan Plan Plan: Pt wants to do what the Dr says but only wants twice a week with HEP. 2X/ week for up to 18 visits per script for eccentric R heel strength, stretching of R gastroc, grashton per Dr notes if painful, gait training with HEP Balance/Gait/Functional tests Balance/Special Test Scores Lower Extremity Functional Score: 63 Goals Goals Goal 1:: I HEP Goal Time Frame: 6-8 Weeks Goal Progress: Goal Met Goal 2:: Increase R ankle AROM (at the time of the eval: R AROM DF 1, PF 64, INV 27, EV 15 L AROML DF 12, PF 60, INV 28, EV 15) Goal Time Frame: 6-8 Weeks Goal Progress: Goal Met Goal 3:: Be able to walk without having pain B achilles Goal Time Frame: 6-8 Weeks Goal Progress: Progressing Goal 4:: Increase ankle strength (at the time of the eval: R DF 22.8 and L 17.6 R PF 13.1 and L PF 16.3) Goal Time Frame: 6-8 Weeks Goal Progress: Goal Met Anticipated Interventions Anticipated Interventions Patient/Client Instruction: Educate patient on: Condition and Plan of Care For the Purpose of:: To decrease pain, To decrease swelling/inflammation, To increase ROM, To improve nutrient delivery to tissue, To improve muscle performance and motor function, To improve ability to perform ADL's, To increase tolerance to activity/condition/position, To improve performance and independence with ADL's, To decrease level of supervision to perform tasks, To improve ability of physical actions for home/community/work/leisure, To improve gait and locomotor functions, To improve health of tissue, To decrease soft tissue restriction, To increase flexibility/ROM, To improve balance and To improve safety with gait Therapeutic Exercise to Include: Strength training, Flexibilty training, Gait and locomotor training and Active ROM For the Purpose of:: To decrease pain, To decrease swelling/inflammation, To increase ROM, To improve nutrient delivery to tissue, To increase oxygenation perfusion, To improve muscle performance and motor function, To improve ability to perform ADL's, To increase tolerance to activity/condition/position, To improve performance and independence with ADL's, To decrease level of supervision to perform tasks, To improve ability of physical actions for home/community/work/leisure, To improve gait and locomotor functions, To improve health of tissue, To decrease soft tissue restriction and To increase flexibility/ROM Functional Training to Include: Gait training For the Purpose of:: To improve gait and locomotor functions Manual Therapy Techniques to Include: Passive ROM and Soft tissue mobilization For the Purpose of:: To decrease pain, To increase ROM, To improve nutrient delivery to tissue, To improve muscle performance and motor function, To improve ability to perform ADL's, To improve health of tissue, To decrease soft tissue restriction and To increase flexibility/ROM Re-Evaluation Ending Re-evaluation ending: Please do not hesitate to contact me at [phone] by phone or if you have questions or concerns regarding this new plan of care! Sincerely, REBEKAH Ocampo
--- NOTE | 2023-11-01 13:43 | HP.PTDCSUM ---
Discharge Summary D/C summary: It has been my pleasure to treat MIKE TORIBIO referred by Dr. Hermelindo Red DPM, with the diagnosis of B Achilles Tendonitis for a total of 13 visit(s). Discharge Date: 11/01/23 Please see the following information for a summary of their discharge status. Subjective Subjective: He got another injection from Dr Sampson (steroids and muscle relaxor) and since then his foot has been fine. Pt sees the Dr the next week. He is using a blue band and will give him a purple one. He notices that his balance is a little off Pain R Achilles pain: Pain Intensity (Out of 10): 1 L Achilles pain: Pain Intensity (Out of 10): 0 Overall Improvement % Improvement: 30 Objective Objective/Function: Pt will continue to work on HEP and feels comfortable with this Goals Goal 1:: I HEP Goal Progress: Goal Met Goal 2:: Increase R ankle AROM (at the time of the eval: R AROM DF 1, PF 64, INV 27, EV 15 L AROML DF 12, PF 60, INV 28, EV 15 Goal Progress: Goal Met Goal 3:: Be able to walk without having pain B achilles Goal Progress: Goal Met Goal 4:: Increase ankle strength (at the time of the eval: R DF 22.8 and L 17.6 R PF 13.1 and L PF 16.3) Goal Progress: Goal Met Plan Plan: Pt wants to do what the Dr says but only wants twice a week with HEP. 2X/ week for up to 18 visits per script for eccentric R heel strength, stretching of R gastroc, grashton per Dr notes if painful, gait training with HEP D/C Information Discharge Comments: DC PT to HEP d/c sentence: If there are questions or concerns regarding this patient's physical therapy, please feel free to call me at [phone]. Thank you for the referral of this patient. Sincerely, Venus Jones, MPT Balance/Gait/Functional tests Balance/Special Test Scores Functional Gait Assessment Score: 26 % Disability: 13.3400 Lower Extremity Functional Score: 63 Improvement % Improvement: 30
== END 2023-11-01 19:00 | disposition home or self-care (01) ==
LOC: PT 11:00
PROVIDERS: PCP Family Medicine Geriatric Medicine; Visit Provider Student in an Organized Health Care Education/Training Program
DX: M76.61 Achilles tendinitis, right leg (principal); M76.62 Achilles tendinitis, left leg
CPT/HCPCS: 97110; 97161; 97530

== ENCOUNTER 2023-12-08 09:45 | Outpatient (CLI) | payer MEDICARE, OTHER, SELFPAY ==
[2023-12-08 13:28] LABS: M R Staph aureus DNA By PCR Negative (Negative); Probe Check PASS; Specimen Processing Control PASS; Staph aureus DNA By PCR POSITIVE (Negative)
== END 2023-12-08 23:59 | disposition home or self-care (01) ==
LOC: LABSPEC 09:47
PROVIDERS: PCP Family Medicine Geriatric Medicine; Visit Provider Family Medicine Geriatric Medicine
DX: L03.811 Cellulitis of head [any part, except face] (principal); B95.62 Methicillin resistant Staphylococcus aureus infection as the cause of diseases classified elsewhere
CPT/HCPCS: 87070; 87077; 87186; 87205; 87640

== ENCOUNTER → 2024-06-03 | Outpatient (CLI) | payer MEDICARE, OTHER, SELFPAY ==
--- NOTE | 2024-06-03 08:07 | MRI_ITS ---
EXAM: MR LUMBAR SPINE WITHOUT INTRAVENOUS CONTRAST CLINICAL INDICATION: LUMBAR STENOSIS, LUMBAR DISC DISEASE, difficulty ambulating, x 3 months TECHNIQUE: Multiplanar and multisequence MR images of the lumbar spine without intravenous contrast. COMPARISON: July 29, 2020. FINDINGS: VERTEBRAE: Unremarkable with the exception of mild anterior spondylosis at multiple levels.. Vertebral body heights are preserved. . Normal alignment. No spondylolisthesis. There is preservation of the normal lumbar lordosis. SPINAL CORD: Unremarkable. Normal position and signal intensity of the conus medullaris at T12-L1. SOFT TISSUES: Unremarkable. DISCS/SPINAL CANAL/NEURAL FORAMINA: L1-L2: Mild decreased T2 signal intensity similar to prior exam normal height. Mild annular disc bulge and proximal left greater than right neural foraminal stenosis. No valente spinal stenosis. L2-L3: Normal disc height with decreased T2 signal intensity. Mild annular disc bulge and left greater than right neural foraminal stenosis. Mild hypertrophic changes of the facet joints. No valente spinal stenosis. L3-L4: Decreased T2 signal intensity in the disc, normal height. Mild annular disc bulge with left greater than right mild neural foraminal stenosis and mild hypertrophic facet joint changes. No valente spinal canal stenosis. Mild flattening of the lateral recesses. L4-L5: Normal disc height, decreased T2 signal intensity. Facet joint hypertrophic changes and ligamentum flavum hypertrophy to be 2 narrowing of the dorsal thecal sac and bilateral moderately severe neural foraminal stenosis. The AP diameter of the midline canal is estimated to be 8 mm, the transverse canal stenotic at 1.2 cm. Mildly anteriorly displaced nerve roots. Findings similar to prior exam. L5-S1: Normal disc height, mild decreased T2 signal intensity, mild annular disc bulge mild bilateral neural foraminal narrowing. No significant spinal stenosis.. MRI/Spine Lumbar (Routine) IMPRESSION: Moderate spinal stenosis at L4-5 is similar to prior exam, with multifactorial etiology including ligamentum flavum and facet joint hypertrophy and annular disc bulge. Multilevel neural foraminal stenosis and annular disc bulges. Electronically Signed: Cira Watson MD at 2:36 EDT ,
== END | disposition home or self-care (01) ==
LOC: MRI 08:04
PROVIDERS: PCP Family Medicine Geriatric Medicine; Referring Provider Family Medicine Geriatric Medicine; Visit Provider Family Medicine Geriatric Medicine
DX: M48.061 Spinal stenosis, lumbar region without neurogenic claudication (principal)
CPT/HCPCS: 72148

== ENCOUNTER → 2024-06-25 | Outpatient (CLI) | payer MEDICARE, OTHER, SELFPAY ==
[2024-06-25 10:23] LABS: Absolute Lymphocyte Count 1.26 X10^3/uL (0.83-4.51); Absolute Neutrophil Count 5.3 X10^3/uL (2.0-7.7); Basophil# 0.05 X10^3/uL; Basophil% 0.6 % (0-1); Eosinophil# 0.08 X10^3/uL; Hemoglobin 13.9 g/dL (13.0-16.5); Lymphocyte # 1.26 X10^3/ul (0.83-4.51); Lymphocyte % 16.2 % (19-41); Mean Corp Hgb Conc 33.9 g/dL (32-36); Mean Corpuscular Hgb 31.5 pg (27.0-32.0); Mean Platelet Vol. 9.3 fl (6.2-12.0); Monocyte# 0.99 X10^3/uL; Monocyte% 12.7 % (0-10); NRBC Flagged by Analyzer 0 % (0-5); Neutrophil % 68.3 % (47-70); Platelet Count 286 K/mm3 (150-450); RBC Distribution Width SD 48.3 fl (35.1-43.9); Red Blood Count 4.41 M/mm3 (4.6-6.2); White Blood Count 7.8 K/mm3 (4.4-11.0)
[2024-06-25 10:51] LABS: Vitamin D,25 Hydroxy 67.9 ng/mL
[2024-06-25 10:58] LABS: ALB/GLOB Ratio 1.2 RATIO (0.9-2.4); AST(SGOT) 26 U/L (15-37); Alanine Aminotransfer ALT/SGPT 41 U/L (16-61); Albumin, Serum 3.7 g/dL (3.2-5.0); Alkaline Phosphatase 59 U/L (45-117); Anion Gap 6 (5-15); BUN 16 mg/dL (7-18); BUN/Creat Ratio 17.3 RATIO (10-20); Calcium,Total 9.8 mg/dL (8.5-10.1); Chloride 102 mmol/L (98-107); Creatinine, Serum 0.93 mg/dL (0.70-1.30); EST Glomerular Filtration Rate 86 mL/min (>60); Est Glom Filt Rate - Afr Amer 104 mL/min (>60); Globulin 3.2 g/dL (2.2-4.2); Glucose 103 mg/dL (74-106); Potassium 3.7 mmol/L (3.5-5.1); Protein, Total 6.9 g/dL (6.4-8.2); Sodium Level 137 mmol/L (136-145)
== END | disposition home or self-care (01) ==
LOC: POLAB3 10:03
PROVIDERS: PCP Family Medicine Geriatric Medicine; Visit Provider Family Medicine Geriatric Medicine
DX: I10 Essential (primary) hypertension (principal); E55.9 Vitamin D deficiency, unspecified
CPT/HCPCS: 36415; 80053; 82306; 84443; 85025

== ENCOUNTER → 2024-08-06 | Outpatient (CLI) | payer MEDICARE, OTHER, SELFPAY ==
--- NOTE | 2024-08-06 11:38 | VDLE_ITS ---
Reason For Study: Right leg swelling RIGHT LEFT GSV is normal. CFV is compressible, spontaneous, phasic, CFV is compressible, spontaneous, phasic, competent, and demonstrates normal competent and demonstrates normal augmentation. augmentation. FV is compressible, spontaneous, phasic, competent and demonstrates normal augmentation. POP V is compressible, spontaneous, phasic, competent and demonstrates normal augmentation. T/P Trunk is compressible. PTV is compressible. RT PerV is compressible. Acute deep vein thrombosis is noted in the Soleus V. It is dilated and NONCOMPRESSIBLE. Procedure This is a venous duplex using B-mode, color flow and spectral Doppler. Exam performed in department. A preliminary report was called and/or faxed to [facility]. VL/Venous Duplex US, Unilateral Interpretation Summary Acute deep vein thrombosis is noted in the right soleus vein. Ordering Physician: Donny Abbasi Chi Referring Physician: Donny Abbasi Chi Performed By: Angelika Deal RVT
[2024-08-06 12:20] LABS: International Normalized Ratio 0.9; Prothrombin Time (Protime)PT. 12.2 SECONDS (11.7-14.9)
[2024-08-06 12:26] LABS: Absolute Lymphocyte Count 1.57 X10^3/uL (0.83-4.51); Absolute Neutrophil Count 7.8 X10^3/uL (2.0-7.7); Basophil# 0.08 X10^3/uL; Basophil% 0.7 % (0-1); Eosinophil# 0.09 X10^3/uL; Eosinophils% 0.8 % (0-5); Hematocrit 46.4 % (40-54); Hemoglobin 15.9 g/dL (13.0-16.5); Lymphocyte # 1.57 X10^3/ul (0.83-4.51); Lymphocyte % 14.6 % (19-41); Mean Corp Hgb Conc 34.3 g/dL (32-36); Mean Corpuscular Hgb 32.8 pg (27.0-32.0); Mean Corpuscular Volume 95.7 fL (80-94); Mean Platelet Vol. 9.9 fl (6.2-12.0); Monocyte# 1.09 X10^3/uL; Monocyte% 10.1 % (0-10); NRBC Flagged by Analyzer 0 % (0-5); Neutrophil % 72.8 % (47-70); Platelet Count 342 K/mm3 (150-450); RBC Distribution Width CV 13.1 % (11.6-14.6); RBC Distribution Width SD 46.5 fl (35.1-43.9); Red Blood Count 4.85 M/mm3 (4.6-6.2); White Blood Count 10.7 K/mm3 (4.4-11.0)
[2024-08-06 12:55] LABS: ALB/GLOB Ratio 1.4 RATIO (0.9-2.4); AST(SGOT) 25 U/L (15-37); Alanine Aminotransfer ALT/SGPT 44 U/L (16-61); Albumin, Serum 4.2 g/dL (3.2-5.0); Alkaline Phosphatase 60 U/L (45-117); Anion Gap 6 (5-15); BUN 20 mg/dL (7-18); BUN/Creat Ratio 20.8 RATIO (10-20); Calcium,Total 9.4 mg/dL (8.5-10.1); Chloride 101 mmol/L (98-107); Creatinine, Serum 0.96 mg/dL (0.70-1.30); EST Glomerular Filtration Rate 82 mL/min (>60); Est Glom Filt Rate - Afr Amer 99 mL/min (>60); Globulin 3.1 g/dL (2.2-4.2); Glucose 108 mg/dL (74-106); Potassium 3.7 mmol/L (3.5-5.1); Protein, Total 7.3 g/dL (6.4-8.2); Sodium Level 136 mmol/L (136-145)
== END | disposition home or self-care (01) ==
PROVIDERS: PCP Family Medicine Geriatric Medicine; Referring Provider Family Medicine Geriatric Medicine; Visit Provider Family Medicine Geriatric Medicine
DX: Z01.818 Encounter for other preprocedural examination (principal); M79.89 Other specified soft tissue disorders; I10 Essential (primary) hypertension
CPT/HCPCS: 36415; 80053; 85025; 85610; 93971

== ENCOUNTER → 2024-08-19 | Outpatient (CLI) | payer MEDICARE, OTHER, SELFPAY ==
--- NOTE | 2024-08-19 12:54 | STRESSREP_ITS ---
Stress Test Report Exercise myocardial perfusion stress test. 69-year-old man for evaluation of abnormal EKG Stress protocol: Resting EKG demonstrates normal sinus rhythm with a rate of 66 bpm resting blood pressure is 122/74 mmHg. The patient exercised according to the regular Enrique protocol for a total duration of 6 minutes attaining a maximum heart rate of 141 bpm which was 94% of maximum predicted heart rate; the maximum workload was 7 metabolic equivalents. At rest there were no ST or T wave changes noted to suggest ischemia and at peak exercise upsloping ST changes only were noted which did not meet the criteria for ischemia. No clinical angina was noted the test was terminated due to the target heart rate being achieved/fatigue. The peak bl ood pressure was 158/74 mmHg. Rate-pressure product was 21,000. Myocardial perfusion protocol. 11.3 mCi of technetium 99m sestamibi was injected at rest. The patient exercised according to regular Enrique protocol for total duration of 6 minutes and at peak exercise 33.9 mCi of technetium 99m sestamibi was injected stress images were obtained stress and rest images were reconstructed in comparing the short axis vertical long and horizontal long axis. Gated images were also obtained. Perfusion SPECT analysis: Review of the stress images demonstrate normal uptake of tracer noted in all areas of the myocardium except for a portion in the anterior septal wall with reduced perfusion on the stress images. The rest images demonstrate improved perfusion which is suggestive of ischemia in the anteroseptal wall. Gated SPECT analysis: The gated ejection fraction is 70%. Conclusion: Mildly abnormal exercise myocardial perfusion stress test at a moderate workload with mild anteroseptal ischemia Preserved ejection fraction.
== END | disposition home or self-care (01) ==
LOC: CVS 06:16
PROVIDERS: PCP Family Medicine Geriatric Medicine; Referring Provider Family Medicine Geriatric Medicine; Visit Provider Family Medicine Geriatric Medicine
DX: R94.31 Abnormal electrocardiogram [ECG] [EKG] (principal)
CPT/HCPCS: 78452; 93017; A9500; A4216

== ENCOUNTER → 2024-09-23 | Outpatient (CLI) | payer MEDICARE, OTHER, SELFPAY ==
--- NOTE | 2024-09-23 12:54 | ECHOCS_ITS ---
Reason For Study: Abnormal EKG Procedure This was a 2D Doppler, Color Flow transthoracic echocardiogram. Contrast injection was performed. The study was technically difficult. Exam performed in department. Left Ventricle Normal LV size. Left ventricular systolic function is normal. The left ventricular ejection fraction is 65 %. No regional wall motion abnormalities noted. Right Ventricle Normal RV size. Normal systolic function. Atria Normal left atrium. Mitral Valve Normal mitral valve. Tricuspid Valve Normal tricuspid valve. Mild tricuspid valve insufficiency. Pulmonary artery systolic pressure is 30 mmHg. Aortic Valve Trisinus/trileaflet aortic valve. Mild focal aortic valve thickening. Pulmonic Valve The pulmonic valve is not well visualized. Great Vessels Normal aortic root. The pulmonary artery is normal size. Inferior vena cava collapse with respiration. Pericardium/Pleural No pericardial effusion. Medication 22 gauge I.V. with prn adaptor inserted into left arm. Diluted definity 1.5ml given slow IV push to enhance endocardial definition. MMode/2D Measurements & Calculations LVIDd: 4.7 cm IVSd: 1.1 cm Ao root diam: 3.5 cm LVIDs: 3.5 cm LVPWd: 0.73 cm RVDd: 4.6 cm FS: 26.5 % LAV(MOD-bp): 32.3 ml LVAd ap4: 29.5 cm2 SV(MOD-sp4): 45.5 ml LAV(MOD-bp) Indexed: 15.9 ml/m2 LVLd ap4: 8.4 cm SI(MOD-sp4): 22.4 ml/m2 LAV(MOD-sp2): 36.6 ml EDV(MOD-sp4): 82.4 ml LAV(MOD-sp4): 28.6 ml EDV(sp4-el): 88.3 ml LVAs ap4: 18.3 cm2 LVLs ap4: 7.4 cm ESV(MOD-sp4): 36.9 ml ESV(sp4-el): 38.2 ml EF(MOD-sp4): 55.2 % EF(sp4-el): 56.7 % SV(sp4-el): 50.0 ml LA A4 area: 12.7 cm2 LA dimension(2D): 3.9 cm RA A4 area: 17.6 cm2 TAPSE: 2.0 cm Time Measurements MV dec time: 0.24 sec Doppler Measurements & Calculations MV E max harris: 63.8 cm/sec Lat Peak E' Harris: 12.3 cm/sec Med Peak E' Harris: 7.5 cm/sec MV A max harris: 86.2 cm/sec E/E' lat: 5.2 E/E' med: 8.5 MV E/A: 0.74 MV V2 max: 97.9 cm/sec MV P1/2t max harris: 75.0 cm/sec Ao V2 max: 136.7 cm/sec MV max P.8 mmHg MV P1/2t: 84.1 msec Ao max P.5 mmHg MV V2 mean: 51.3 cm/sec MV dec slope: 261.3 cm/sec2 Ao V2 mean: 96.9 cm/sec MV mean P.3 mmHg MVA(P1/2t): 2.6 cm2 Ao mean P.2 mmHg MV V2 VTI: 28.5 cm Ao V2 VTI: 28.9 cm AV (velocity ratio): 0.70 LV V1 max: 92.9 cm/sec MR max harris: 407.1 cm/sec PA V2 max: 111.1 cm/sec LV V1 max P.5 mmHg MR max P.3 mmHg PA V2 mean: 76.1 cm/sec LV V1 mean P.1 mmHg LV V1 mean: 67.7 cm/sec LV V1 VTI: 20.4 cm TR max harris: 252.1 cm/sec TR max P.4 mmHg ECHO/Echo Complete W/ Contrast Interpretation Summary Normal LV size. Left ventricular systolic function is normal. The left ventricular ejection fraction is 65 %. Pulmonary artery systolic pressure is 30 mmHg. Contrast injection was performed. Ordering Physician: Tatiana Nieves Referring Physician: Tatiana Nieves Performed By: Beau Gallegos RCS
== END | disposition home or self-care (01) ==
LOC: CVS 12:49
PROVIDERS: PCP Family Medicine Geriatric Medicine; Referring Provider Internal Medicine Cardiovascular Disease; Visit Provider Internal Medicine Cardiovascular Disease
DX: R94.31 Abnormal electrocardiogram [ECG] [EKG] (principal)
CPT/HCPCS: 93306; Q9957; A4216; C8929

== ENCOUNTER → 2024-10-18 | Outpatient (CLI) | payer MEDICARE, OTHER, SELFPAY ==
--- NOTE | 2024-10-18 12:56 | CT_ITS ---
STUDY: CT CHEST WITH CONTRAST REASON FOR EXAM: Male, 69 years old. Abnormal Stress Test OVERREAD ONLY RADIATION DOSAGE (If Supplied By Facility): CTDIvol = ( 31.85 ) mGy, DLP = ( 1234.26 ) mGycm TECHNIQUE: Transaxial imaging was performed following intravenous administration of IV 75mL Isovue-370. Cardiac over read examination. Individualized dose optimization techniques were used for this CT. COMPARISON: No relevant priors. FINDINGS: CHEST The lungs are normal. There is no demonstrated pleural abnormality. There are calcifications of the coronary arteries. There are small lymph nodes within the mediastinum, which are normal in size and morphology most compatible with reactive lymph hyperplasia. Normal hilar regions. Normal unenhanced pulmonary arteries. There is atherosclerotic calcification of the aortic arch and descending thoracic aorta. There are degenerative changes of the thoracic spine. Diffuse fatty infiltration of the liver. Small hiatal hernia. CT/Cardiac Angiography CTA IMPRESSION: Coronary artery calcification. Electronically Signed: Yunier Monaco MD at 13:14 EST ,
--- NOTE | 2024-10-18 12:57 | CT_ITS ---
STUDY: CT CHEST WITH CONTRAST REASON FOR EXAM: Male, 69 years old. Abnormal Stress Test OVERREAD ONLY RADIATION DOSAGE (If Supplied By Facility): CTDIvol = ( 31.85 ) mGy, DLP = ( 1234.26 ) mGycm TECHNIQUE: Transaxial imaging was performed following intravenous administration of IV 75mL Isovue-370. Cardiac over read examination. Individualized dose optimization techniques were used for this CT. COMPARISON: No relevant priors. FINDINGS: CHEST The lungs are normal. There is no demonstrated pleural abnormality. There are calcifications of the coronary arteries. There are small lymph nodes within the mediastinum, which are normal in size and morphology most compatible with reactive lymph hyperplasia. Normal hilar regions. Normal unenhanced pulmonary arteries. There is atherosclerotic calcification of the aortic arch and descending thoracic aorta. There are degenerative changes of the thoracic spine. Diffuse fatty infiltration of the liver. Small hiatal hernia. CT/Limited Chest CT Cardiac Only IMPRESSION: Coronary artery calcification. Electronically Signed: Yunier Monaco MD at 13:14 EST ,
[2024-10-18 13:10] VITALS: BP 138/71; PULSE 88; RESP 18; O2SAT 95; BMI 28.1
[2024-10-18] MEDS: 0.9% Saline Lock 10 ML Syringe IV (13:20)
[2024-10-18 13:40] VITALS: BP 119/71; PULSE 74
[2024-10-18] MEDS: Nitroglycerin SL (ED/IMG/CATH) 0.4 MG TABLET SL (13:40)
[2024-10-18 13:49] VITALS: BP 119/71; PULSE 73; RESP 18
--- NOTE | 2024-10-21 07:08 | CCTA.WCONT ---
CCTA w/Cont Coronary Arteries Date of Study:: 10/18/24 Abnormal stress test Coronary Calcium Scoring: High-resolution Computed Tomographic imaging of the chest was performed on [10/18/2024], with particular attention paid to the coronary arteries. Intravenous contrast agent was administered per protocol and images reconstructed and displayed. LEFT MAIN CORONARY ARTERY: Arises from the left coronary cusp with no significant stenosis noted [] LEFT ANTERIOR DESCENDING CORONARY ARTERY: Arises from the left main coronary artery in the proximal to mid segment demonstrates heavy calcification and then there appears to be a subtotal occlusion with faint filling of the distal left anterior descending artery [] LEFT CIRCUMFLEX CORONARY ARTERY: Arises from the left main coronary artery with proximal calcification and moderate proximal stenosis and mild mixed plaque in the midsegment [] RIGHT CORONARY ARTERY: Arises from the right coronary cusp. The proximal portion has mild calcification and then mild eccentric calcification noted in the midsegment. The vessel then continues to the posterior descending artery and posterolateral vessel. The posterior descending artery is noted to be moderately calcified with moderate stenosis and then bifurcates to the posterior descending artery and posterolateral vessel. [] THORACIC AORTA: [] PULMONARY ARTERY: [] LEFT ATRIUM/APPENDAGE: [] MITRAL VALVE: [] AORTIC VALVE: [] LEFT VENTRICLE: [] CORONARY CALCIUM SCORE: Not done CT angiogram demonstrating moderately severe coronary calcification involving the proximal and mid left anterior descending artery and circumflex artery with likely subtotal occlusion of the mid left anterior descending artery. Significant calcification also noted of the mid to distal right coronary artery. []
== END | disposition home or self-care (01) ==
LOC: CT 12:55
PROVIDERS: PCP Family Medicine Geriatric Medicine; Referring Provider Internal Medicine Cardiovascular Disease; Visit Provider Internal Medicine Cardiovascular Disease
DX: R94.39 Abnormal result of other cardiovascular function study (principal)
CPT/HCPCS: 75574; 76380; Q9967

== ENCOUNTER 2024-11-12 07:29 | Day surgery (SDC) | payer MEDICARE, OTHER, SELFPAY ==
--- NOTE | 2024-11-07 10:05 | RAD_ITS ---
PROCEDURE: CHEST PA AND LATERAL REASON FOR EXAM: Heart catheterization Monday. Pre-admission study. TECHNIQUE: Frontal and lateral views of the chest. COMPARISON: None. RAD/Chest PA and Lateral IMPRESSION: Mild thoracic spine degenerative changes are seen, with extensive DISH noted. Lungs appear clear of acute disease. No pleural effusion or pneumothorax is evident. The cardiomediastinal silhouette is within the normal range for age. No eviden ce of cardiomegaly. No evidence of acute cardiopulmonary disease. Reading Location: [id number]
[2024-11-07 10:31] LABS: Absolute Lymphocyte Count 1.57 X10^3/uL (0.83-4.51); Absolute Neutrophil Count 4.1 X10^3/uL (2.0-7.7); Basophil# 0.07 X10^3/uL; Eosinophils% 1.5 % (0-5); Hematocrit 46.7 % (40-54); Hemoglobin 15.8 g/dL (13.0-16.5); Lymphocyte # 1.57 X10^3/ul (0.83-4.51); Lymphocyte % 23.2 % (19-41); Mean Corp Hgb Conc 33.8 g/dL (32-36); Mean Corpuscular Hgb 30.8 pg (27.0-32.0); Mean Platelet Vol. 10.3 fl (6.2-12.0); Monocyte# 0.88 X10^3/uL; NRBC Flagged by Analyzer 0 % (0-5); Neutrophil # 4.14 X10^3/uL (2.7-7.7); Platelet Count 306 K/mm3 (150-450); RBC Distribution Width CV 12.5 % (11.6-14.6); RBC Distribution Width SD 41.1 fl (35.1-43.9); Red Blood Count 5.13 M/mm3 (4.6-6.2); White Blood Count 6.8 K/mm3 (4.4-11.0)
[2024-11-07 11:16] LABS: Anion Gap 7 (5-15); BUN 17 mg/dL (7-18); BUN/Creat Ratio 17.2 RATIO (10-20); Calcium,Total 9.5 mg/dL (8.5-10.1); Chloride 104 mmol/L (98-107); Creatinine, Serum 0.99 mg/dL (0.70-1.30); EST Glomerular Filtration Rate 79 mL/min (>60); Est Glom Filt Rate - Afr Amer 96 mL/min (>60); Glucose 116 mg/dL (74-106); Sodium Level 137 mmol/L (136-145)
--- NOTE | 2024-11-07 15:12 | HP.PCM_ITS ---
History and Physical Date of Admission: 11/12/24 This gentleman has past medical history significant for hypertension and dyslipidemia. Recently he injured his right ankle. Postinjury, he has been diagnosed with DVT of his right leg. Patient also has history of spinal stenosis. He is being contemplated for surgery. As part of his workup, an ECG was done. It was noted to be abnormal. An exercise stress Myoview was subsequently done. This is reported as abnormal showing ischemia in the anterior wall. He has therefore been referred to us for evaluation and management and for assessing his preoperative cardiovascular risk.He underwent a CT angiogram demonstrating moderately severe coronary calcification involving the proximal and mid left anterior descending artery and circumflex artery with likely subtotal occlusion of the mid left anterior descending artery. Significant calcification also noted of the mid to distal ri ght coronary artery. He is here today to undergo a diagnostic heart catheterization to further assess. Patient denies any chest pains either at rest or with exertion. No shortness of breath. No palpitations. No orthopnea. No PND. Right-sided ankle edema post his ankle injury and DVT. 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 Surgical History H/O hernia repair H/O removal of cyst Family History Brother , age 46 [place] Myocardial infarction Mother Arthritis Diabetes Hypertension Father Arthritis Diabetes Hypertension Other Heart disease Social History household members: spouse Smoking Status: Former smoker alcohol intake: current alcohol intake frequency: a few times a week substance use type: does not use what type of physical activity do you participate in: walking ROS Const Const: Negative for fatigue, weakness, headache(s) or weight gain ENT ENT: Positive for balance problems; Negative for headache(s), dizziness or Nosebleed/epistaxis Cardio Chest Pain: No Palpitations: No Edema: Right Muscle aches with walking: None Resp Respiratory: Negative for SOB with activity, SOB at rest or SOB orthopnea\SOB lying down GI GI: Positive for heartburn; Negative nausea or vomiting Musc Musc: Positive for balance problems; Negative for muscle aches/ myalgia, muscle weakness or joint pain Neuro Neuro: Negative for dizziness, lightheadedness, near syncope, syncope, headache(s) or weakness Endo Endo: Negative for fatigue Cardiology Exam Const Appearance: comfortable and no acute distress Nutritional Appearance: well nourished Neck Neck: no JVD Carotids: Negative bruit Chest Auscultation: Bilateral: Clear to Auscultation Cardio Rate: regular rate Rhythm: regular rhythm Heart sounds: S1 normal and S2 normal Neuro General: patient alert, patient awake and patient oriented x3 Extremities Lower Extremity Edema: None: Left and +2: Right Supplemental Info Supplemental Information Stress Test Report 08/19/2024: 69-year-old man for evaluation of abnormal EKG Stress protocol: Resting EKG demonstrates normal sinus rhythm with a rate of 66 bpm resting blood pressure is 122/74 mmHg. The patient exercised according to the regular Enrique protocol for a total duration of 6 minutes attaining a maximum heart rate of 141 bpm which was 94% of maximum predicted heart rate; the maximum workload was 7 metabolic equivalents. At rest there were no ST or T wave changes noted to suggest ischemia and at peak exercise upsloping ST changes only were noted which did not meet the criteria for ischemia. No clinical angina was noted the test was terminated due to the target heart rate being achieved/fatigue. The peak blood pressure was 158/74 mmHg. Rate-pressure product was 21,000. Myocardial perfusion protocol. 11.3 mCi of technetium 99m sestamibi was injected at rest. The patient exercised according to regular Enrique protocol for total duration of 6 minutes and at peak exercise 33.9 mCi of technetium 99m sestamibi was injected stress images were obtained stress and rest images were reconstructed in comparing the short axis vertical long and horizontal long axis. Gated images were also obta ined. Perfusion SPECT analysis: Review of the stress images demonstrate normal uptake of tracer noted in all areas of the myocardium except for a portion in the anterior septal wall with reduced perfusion on the stress images. The rest images demonstrate improved perfusion which is suggestive of ischemia in the anteroseptal wall. Gated SPECT analysis: The gated ejection fraction is 70%. Conclusion: Mildly abnormal exercise myocardial perfusion stress test at a moderate workload with mild anteroseptal ischemia Preserved ejection fraction. Assessment & Plan Assessment/Plan (1) CAD (coronary artery disease): (2) Abnormal cardiovascular stress test: PLAN: Plan Patient will undergo a diagnostic heart catheterization. Follow-up will be based on findings.
[2024-11-11 08:06] VITALS: BMI 28.1
--- NOTE | 2024-11-12 09:47 | CL.D_ITS ---
Patient Name: MIKE TORIBIO Study Date: 11/12/2024 Performing: Tatiana Nieves MD Ht: 68 inches 172.72 cm : 1955 Wt: 184.99 lbs 83.91 kg Age: 69 Gender: male BSA: 1.98 PROCEDURE(S) PERFORMED [id number]-([id number])[facility] CLINICAL PROFILE AND INDICATIONS Indications: Suspected CAD Heart Failure: None Stress/Imaging Stress Test w/SPECT MPI: Yes Result: Positive Intermediate RiskStress Test with SPECT MPI: Positive Intermediate Risk CAD Presentations: No Sxs, no angina. CONCLUSIONS 60% Mid LAD, mild distal Mid LAD bridging Calcific non-obstructive diseasse RCA, LCX RECOMMENDATIONS Risk factor modification Medical therapy DESCRIPTION OF PROCEDURE The patient arrived to the procedure lab. The risks and benefits of the procedure as well as a full description of our services here and current unavailability of surgical backup were fully explained to the patient and/or their significant other prior to the catheterization. The Timeout was completed, verifying the correct patient and procedure. The patient's procedural site was prepped and draped in the usual fashion. Local anesthetic was given subcutaneously to right radial region with Lidocaine 2%. Using a modified Seldinger technique, arterial access was obtained via the right radial artery, a 6Fr sheath was inserted. Left Coronary Artery selective angiography was performed in multiple views using a 5 Fr. 4.0 [place] catheter. Right Coronary Artery selective angiography was then performed in multiple views using a 5 Fr. 4.0 [place] catheter.The arterial sheath was pulled and a TR Band was applied for hemostasis w/ 12ml air CORONARY ANGIOGRAPHY DOMINANCE: Right Dominant LEFT MAIN: Luminal Irregularities Calcified 20% Ostial lesion in LMCA LEFT ANTERIOR DESCENDING ARTERY: LAD: Calcified 30% Proximal lesion in LAD Tubular Calcified 60% Mid lesion in LAD RIGHT CORONARY ARTERY: RCA: Calcified 30% Proximal lesion in RCA RT PDA: Luminal Irregularities 40% Proximal lesion in RT PDA COMPLICATIONS No Complications PROCEDURE MEDICATIONS Versed 1 mg IV Fentanyl 50 mcg IV Versed 1mg IV Fentanyl 50 mcg IV Oxygen: 2 L/min via nasal cannula Oxygen: 4 L/min via nasal cannula Heparin given IA 11/12/2024 09:20:19 Verapamil 2.5mg, Ntg 200mcgs, 2000 units of Heparin given IA 11/12/2024 09:20:19 IV Bolus: .9 NaCl 250 ml total 11/12/2024 09:23:32 SUMMARY OF HEMODYNAMIC DATA Time AIR REST ECG 07:50:07 AO 105/64 (78) SA 09:24:28 AO 85/51 (64) 09:26:56 Signed By Tatiana Nieves MD On 11/12/2024 09:46:07 Tatiana Nieves MD
== END 2024-11-12 11:20 | disposition home or self-care (01) ==
PROVIDERS: Physician Assistant Medical; PCP Family Medicine Geriatric Medicine; Referring Provider Internal Medicine Cardiovascular Disease; Visit Provider Internal Medicine Cardiovascular Disease
DX: I25.10 Atherosclerotic heart disease of native coronary artery without angina pectoris (principal); R94.39 Abnormal result of other cardiovascular function study; Z87.891 Personal history of nicotine dependence
CPT/HCPCS: 36415; 71046; 80048; 85025; 93454; 99152; 99153; Q9967; C1769; C1894

== ENCOUNTER → 2024-12-04 | Outpatient (CLI) | payer MEDICARE, OTHER, SELFPAY ==
[2024-12-04 15:57] LABS: Absolute Lymphocyte Count 1.88 X10^3/uL (0.83-4.51); Absolute Neutrophil Count 7.4 X10^3/uL (2.0-7.7); Basophil# 0.07 X10^3/uL; Basophil% 0.7 % (0-1); Eosinophil# 0.14 X10^3/uL; Eosinophils% 1.3 % (0-5); Hematocrit 43.3 % (40-54); Hemoglobin 14.5 g/dL (13.0-16.5); Lymphocyte # 1.88 X10^3/ul (0.83-4.51); Lymphocyte % 17.9 % (19-41); Mean Corp Hgb Conc 33.5 g/dL (32-36); Mean Corpuscular Hgb 30.7 pg (27.0-32.0); Mean Corpuscular Volume 91.5 fL (80-94); Mean Platelet Vol. 9.8 fl (6.2-12.0); Monocyte# 1.01 X10^3/uL; Monocyte% 9.6 % (0-10); NRBC Flagged by Analyzer 0 % (0-5); Neutrophil # 7.38 X10^3/uL (2.7-7.7); Platelet Count 415 K/mm3 (150-450); RBC Distribution Width CV 12.8 % (11.6-14.6); RBC Distribution Width SD 42.7 fl (35.1-43.9); Red Blood Count 4.73 M/mm3 (4.6-6.2); White Blood Count 10.5 K/mm3 (4.4-11.0)
[2024-12-04 16:47] LABS: ALB/GLOB Ratio 1.4 RATIO (0.9-2.4); AST(SGOT) 26 U/L (<=37); Alanine Aminotransfer ALT/SGPT 32 U/L (<=46); Alkaline Phosphatase 82 U/L (40-129); Anion Gap 10 (5-15); BUN 16 mg/dL (4-19); BUN/Creat Ratio 20.1 RATIO (10-20); Calcium 9.4 mg/dL (7.6-11.0); Carbon Dioxide 26.7 mmol/L (22.0-29.0); Chloride 98 mmol/L (96-108); Creatinine, Serum 0.8 mg/dL (0.8-1.3); EST Glomerular Filtration Rate 96 (>60); Globulin 2.9 g/dL (2.2-4.2); Glucose 148 mg/dL (70-99); Potassium 3.6 mmol/L (3.3-5.1); Protein, Total 6.9 g/dL (5.9-8.4); Sodium Level 134 mmol/L (133-145); Total Bilirubin 0.26 mg/dL (0.00-1.30)
== END | disposition home or self-care (01) ==
LOC: POLAB3 15:29
PROVIDERS: PCP Family Medicine Geriatric Medicine; Visit Provider Family Medicine Geriatric Medicine
DX: Z01.818 Encounter for other preprocedural examination (principal); I82.401 Acute embolism and thrombosis of unspecified deep veins of right lower extremity; I10 Essential (primary) hypertension
CPT/HCPCS: 36415; 80053; 85025; 85610

== ENCOUNTER → 2024-12-13 | Outpatient (CLI) | payer MEDICARE, OTHER, SELFPAY ==
[2024-12-13 12:40] LABS: Magnesium 2.1 mg/dL (1.5-2.2)
[2024-12-13 13:26] LABS: Hepatitis C Antibody Nonreactive (Nonreactive)
[2024-12-14 06:08] LABS: Hepatitis A AB, Total Negative (Negative)
== END | disposition home or self-care (01) ==
LOC: MTLAB 10:02
PROVIDERS: PCP Family Medicine Geriatric Medicine; Referring Provider Orthopaedic Surgery Orthopaedic Surgery of the Spine; Visit Provider Orthopaedic Surgery Orthopaedic Surgery of the Spine
DX: Z01.818 Encounter for other preprocedural examination (principal)
CPT/HCPCS: 36415; 83735; 86708; 86803; 86850; 86900; 86901

== ENCOUNTER 2024-12-25 05:30 | Day surgery (SDC) | payer MEDICARE, OTHER, SELFPAY ==
--- NOTE | 2024-12-11 11:11 | PAT.ANESEVAL ---
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 When Was Last Pacemaker Check QUESTION #4 FULL TEXT: You/Your Family Experience fever (hyperthermia) with Anesthesia Last Oral Intake Last Oral intake: Last Oral Intake NPO since Meds taken in AM with sips of water? Meds patient instructed to take am of surgery PONV PONV - etymology professor: PONV - etymology professor Female No 12/11/24 10:17 HX of Motion Sickness No 12/11/24 10:17 HX of N/V After Surgery No 12/11/24 10:17 Non-Smoker Yes 12/11/24 10:17 Duration of Surgery greater Yes 12/11/24 10:17 than 60 minutes Number of Risk Factors 2 12/11/24 10:17 PONV Score Moderate Risk 12/11/24 10:17 Height & Weight Height & Weight: Anesthesia: Height & Weight Height 5 ft 8 in 11/12/24 07:53 Respiratory Assessment Respiratory Assessment - etymology professor: Respiratory Tract Infection Hx - etymology professor Hx Respiratory Tract Infection No 12/11/24 10:17 STOP Sleep Apnea STOP Sleep Apnea - etymology professor: STOP Sleep Apnea - etymology professor Hx Hypertension Yes: CONTROLLED WITH MEDS 12/11/24 10:17 Hx Sleep Apnea No 12/11/24 10:17 CPAP BIPAP Do you snore loudly (louder No 12/11/24 10:17 than talking or can be heard Do you often feel tired/ No 12/11/24 10:17 fatigued/ sleepy during daytime? Has anyone observed you stop No 12/11/24 10:17 breathing during sleep? STOP Results Negative 12/11/24 10:17 QUESTION #5 FULL TEXT : Do you snore loudly (louder than talking or can be heard through closed doors)? 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 Specify any problems Hx of Preganancy in last 3 N/A 12/11/24 10:17 Months Nurse Filling Out Transfusion [email or web address] 12/11/24 10:17 & Questions: Date: 12/11/24 12/11/24 10:17 Time: 10:21 12/11/24 10:17 Patient unable to answer at this time (ie. 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 Left sided sciatica GERD (gastroesophageal reflux disease) Low back pain Lumbar disc disease Muscle spasm of back Abnormal gait Right leg swelling Home Medications ?Medication ?Instructions ?Recorded ?Last Taken ?Type cholecalciferol (vitamin D3) 25 25 mcg PO DAILY 09/10/21 Unknown History mcg (1,000 unit) capsule lisinopril 10 1 tab PO DAILY 09/10/21 11/12/24 History mg-hydrochlorothiazide 12.5 mg tablet pravastatin 40 mg tablet 40 mg PO DAILY 09/10/21 Unknown History vit C 250 mg-vit E 90 mg-zinc 40 1 tab PO DAILY 09/10/21 Unknown History mg-copper 1 [id number] capsule (PreserVision AREDS-2) glucosamine sulfate 500 mg capsule 1,000 mg PO QDAY 09/09/24 Unknown History aspirin 81 mg tablet,delayed 81 mg PO DAILY 12/11/24 Unknown History release (Adult Aspirin Regimen) Allergy/AdvReac Type Severity Reaction Status Date / Time No Known Allergies Allergy Verified 12/11/24 10:14 Family History Brother , age 46 [place] Myocardial infarction Mother Arthritis Diabetes Hypertension Father Arthritis Diabetes Hypertension Other Heart disease Surgical History (Updated 12/11/24 @ 10:33 by Jefry Walters) History of cardiac catheterization H/O removal of cyst H/O hernia repair Social History household members: spouse Smoking Status: Former smoker alcohol intake: current alcohol intake frequency: a few times a week substance use type: does not use what type of physical activity do you participate in: walking Audit: Pertinent Findings Pertinent Findings Stress test pertinent findings: 08/19/2024 mildly abnormal exercise myocardial perfusion stress test at moderate workload mild anterior septal ischemia preserved EF at 70% Echo (EF%) pertinent findings: 09/23/2024 normal size function normal. EF 65%. Pulmonary artery pressure 30 Heart catheterization pertinent findings: 11/12/2024. 60% mid LAD none obstructive disease RCA left circumflex. Recommendations. Risk factor modification and medical therapy Recommendation Anesthesia Recommendation Anesthesia recommendation: OPTIMIZED for anesthesia
[2024-12-16 19:05] LABS: HIV Nonreactive (Nonreactive)
[2024-12-25] VITALS (10 sets, daily range): BP systolic 94–130; BP diastolic 62–82; PULSE 66–78; RESP 9–19; TEMP 36.2–36.6; O2SAT 91–98; BMI 28.8
[2024-12-25] MEDS: Magnesium 1 GM over 15 mins IV (06:20)
[2024-12-25] MEDS: 0.9% Normal Saline (1000mL) 1,000 ML 15 ML IV (06:20)
[2024-12-25] MEDS: Acetaminophen 500 MG Tablet 1000 MG PO (06:21)
[2024-12-25] MEDS: Insulin Lispro 100 UNIT/ML INSULN.PEN SC (06:32)
--- NOTE | 2024-12-25 06:33 | PRE.ANES_ITS ---
ASA Classification* ASA Classification ASA Classification: 3 Assessment & Plan Anesthesia* Anesthesia Assessment Anesthesia Assessment: Discussed sedation and/or anesthesia options, risks, benefits, and alternatives with patient/parents/legal guardian/POA. Questions invited. The patient/parents/legal guardian/POA seems to understand and agrees to proceed with anesthesia plan. Reviewed the physical assessment, medical history, allergy history and patient home medications list prior to surgery/procedure/anesthetic and documented any changes. Performed airway and anesthesia risk assessments. Anesthesia Type Anesthesia Type: General History Source History Obtained from:: Patient and Chart Anesthesia Focused Assessment* Temperature: 97.8 F Pulse Rate: 75 Blood Pressure: 130/82 Respiratory Rate: 19 Pulse Ox: 93 Oxygen Delivery Method: Room Air Airway Assessment Mouth opens: >3 cm Mallampati Score: IV Teeth Condition: Partial (Patient has upper and lower partials. They are out. Rest of the teeth are tight.) Neck Range of motion (ROM): Limited ROM (Somewhat decreased extension) Focused Labs Anesthesia Preop lab: CBC WBC 10.5 K/mm3 (4.4-11.0) 12/04/24 15:12/04/24 RBC 4.73 M/mm3 (4.6-6.2) 12/04/24 15:12/04/24 Hgb 14.5 g/dL (13.0-16.5) 12/04/24 15:12/04/24 Hct 43.3 % (40-54) 12/04/24 15:12/04/24 Plt Count 415 K/mm3 (150-450) 12/04/24 15:12/04/24 CHEMISTRY Potassium 3.6 mmol/L (3.3-5.1) 12/04/24 15:12/04/24 Sodium 134 mmol/L (133-145) 12/04/24 15:12/04/24 Magnesium 2.1 mg/dL (1.5-2.2) 12/13/24 10:10 12/13/24 BUN 16 mg/dL (4-19) 12/04/24 15:12/04/24 Creatinine 0.8 mg/dL (0.8-1.3) 12/04/24 15:12/04/24 Glucose 148 mg/dL (70-99) H 12/04/24 15:29 12/04/24 TSH 1.970 uIU/mL (0.358-3.740) 06/25/24 10:04 06/09 05/01 COAG PT 13.0 SECONDS (11.7-14.9) 12/04/24 15:29 Pre-Assessment Diagnosis/Proposed Procedure Planned Operative Procedure(s): LUMBAR LAMINECTOMY AND DECOMPRESSION L4-5, L4- S1, LEFT SIDE Anesthesia History 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 When Was Last Pacemaker Check QUESTION #4 FULL TEXT: You/Your Family Experience fever (hyperthermia) with Anesthesia Patient states slow to wake up postanesthesia. Last Oral Intake Last Oral intake: Last Oral Intake NPO since 05:30 12/25/24 06:11 Meds taken in AM with sips of No 12/25/24 06:11 water? 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: PONV - inspector sheet metal parts Female No 12/11/24 10:17 HX of Motion Sickness No 12/11/24 10:17 HX of N/V After Surgery No 12/11/24 10:17 Non-Smoker Yes 12/11/24 10:17 Duration of Surgery greater Yes 12/11/24 10:17 than 60 minutes Number of Risk Factors 2 12/11/24 10:17 PONV Score Moderate Risk 12/11/24 10:17 Height & Weight Height & Weight: Anesthesia: Height & Weight Height 5 ft 8 in 12/25/24 06:11 Weight: 86 kg 12/25/24 06:11 Body Mass Index (BMI) 28.8 12/25/24 06:11 Respiratory Assessment Respiratory Assessment - inspector sheet metal parts: Respiratory Tract Infection Hx - inspector sheet metal parts Hx Respiratory Tract Infection No 12/11/24 10:17 STOP Sleep Apnea STOP Sleep Apnea - inspector sheet metal parts: STOP Sleep Apnea - inspector sheet metal parts Hx Hypertension Yes: CONTROLLED WITH MEDS 12/11/24 10:17 Hx Sleep Apnea No 12/11/24 10:17 CPAP BIPAP Do you snore loudly (louder No 12/11/24 10:17 than talking or can be heard Do you often feel tired/ No 12/11/24 10:17 fatigued/ sleepy during daytime? Has anyone observed you stop No 12/11/24 10:17 breathing during sleep? STOP Results Negative 12/11/24 10:17 QUESTION #5 FULL TEXT : Do you snore loudly (louder than talking or can be heard through closed doors)? 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 Specify any problems Hx of Preganancy in last 3 N/A 12/11/24 10:17 Months Nurse Filling Out Transfusion [email or web address] 12/11/24 10:17 & Questions: Date: 12/11/24 12/11/24 10:17 Time: 10:21 12/11/24 10:17 Patient unable to answer at this time (ie. 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: /Reproductive Hx- inspector sheet metal parts Hx Now Gestational Age (in weeks): EDC: Hx Hx Para Hx Section SAB Active Medications Active Medications: Current Medications Generic Name Dose Route Start Last Admin Trade Name Freq PRN Reason Stop Dose Admin Acetaminophen 1,000 mg 12/25/24 07:30 12/25/24 06:21 Acetaminophen 500 Mg Tablet PO 12/25/24 07:31 1,000 mg X1 ONE Administration Cefazolin Sodium 2 gm/ N/A 20 mls @ 400 mls/hr 12/25/24 07:30 IV 12/25/24 07:32 PREOP ONE Tranexamic Acid 1,000 mg/ 110 mls @ 440 mls/hr 12/25/24 07:30 Sodium Chloride IV 12/25/24 07:44 X1 ONE Tranexamic Acid 1,000 mg/ 110 mls @ 440 mls/hr 12/25/24 07:30 Sodium Chloride IV 12/25/24 07:44 X1 ONE Magnesium Sulfate 1 gm/ 102 mls @ 408 mls/hr 12/25/24 07:30 12/25/24 06:20 Dextrose IV 12/25/24 07:44 408 mls/hr X1 ONE Administration Sodium Chloride 1,000 mls @ 15 mls/hr 12/25/24 05:55 12/25/24 06:20 IV 15 mls/hr .Q48H JANETTE Administration Insulin Human Lispro 1 - 6 unit 12/25/24 07:30 12/25/24 06:32 Insulin Lispro 100 Unit/Ml Insuln.Pen SC 4 u Q4H PRN PRN Administration BG>/= 180, SEE PROTOCOL Protocol PFSH Medical History Wears partial dentures Alcohol use History of steroid therapy History of pain when walking History of echocardiogram History of stress test Cardiology follow-up encounter CAD (coronary artery disease) Contact dermatitis Right sided sciatica Closed head injury Scalp wound Cellulitis of scalp 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 Left sided sciatica GERD (gastroesophageal reflux disease) Low back pain Lumbar disc disease Muscle spasm of back Abnormal gait Right leg swelling Home Medications ?Medication ?Instructions ?Recorded ?Last Taken ?Type cholecalciferol (vitamin D3) 25 25 mcg PO DAILY 12/24/24 History mcg (1,000 unit) capsule lisinopril 10 1 tab PO DAILY 09/10/2112/07 History mg-hydrochlorothiazide 12.5 mg tablet pravastatin 40 mg tablet 40 mg PO DAILY 09/10/2112/07 History vit C 250 mg-vit E 90 mg-zinc 40 1 tab PO DAILY 12/24/24 History mg-copper 1 pj-ffjxke-huchex capsule (PreserVision AREDS-2) glucosamine sulfate 500 mg capsule 1,000 mg PO QDAY 12/24/24 History aspirin 81 mg tablet,delayed 81 mg PO DAILY 12/11/24 0 12/22/24 History release (Adult Aspirin Regimen) Allergy/AdvReac Type Severity Reaction Status Date / Time No Known Allergies Allergy Verified 12/25/24 05:45 Family History Brother , age 46 [place] Myocardial infarction Mother Arthritis Diabetes Hypertension Father Arthritis Diabetes Hypertension Other Heart disease Surgical History History of cardiac catheterization H/O removal of cyst H/O hernia repair Social History household members: spouse Smoking Status: Former smoker alcohol intake: current alcohol intake frequency: a few times a week substance use type: does not use what type of physical activity do you participate in: walking Review of Systems (Anesthesia) ROS Narrative System reviewed and no additional complaints, except as documented.
[2024-12-25 06:41] LABS: Bedside Glucose 315 mg/dL (74-106)
--- NOTE | 2024-12-25 07:21 | PCM.HP.BLA ---
History and Physical MR#: [id number] Acct: [id number] Name: MIKE TORIBIO Rep #: [id number] : 1955 Provider: Dr. Jj Alfaro MD Age/Sex: 69/M [place] [facility] [place]: Signed Intake Vital Signs 11/12/2506:53 Height 5 ft 8 in Weight: 185 lb Intake Visit Reasons: lumbar spine Chief Complaint: lumbar spine Allergies No Known Allergies Allergy (Verified 12/13/24 09:06) Medications ?Medication ?Instructions ?Recorded ?Confirmed ?Type cholecalciferol (vitamin D3) 25 25 mcg PO DAILY 09/10/21 12/11/24 History mcg (1,000 unit) capsule lisinopril 10 1 tab PO DAILY 09/10/21 12/11/24 History mg-hydrochlorothiazide 12.5 mg tablet pravastatin 40 mg tablet 40 mg PO DAILY 09/10/21 12/11/24 History vit C 250 mg-vit E 90 mg-zinc 40 1 tab PO DAILY 09/10/21 12/11/24 History mg-copper 1 [id number]-zbnecx capsule (PreserVision AREDS-2) glucosamine sulfate 500 mg capsule 1,000 mg PO QDAY 09/09/24 12/11/24 History aspirin 81 mg tablet,delayed 81 mg PO DAILY 12/11/24 12/11/24 History release (Adult Aspirin Regimen) Have you fallen in the past year?: No PFSH Medical History Wears partial dentures Alcohol use History of steroid therapy History of pain when walking History of echocardiogram History of stress test Cardiology follow-up encounter CAD (coronary artery disease) Contact dermatitis Right sided sciatica Closed head injury Scalp wound Cellulitis of scalp 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 Left sided sciatica GERD (gastroesophageal reflux disease) Low back pain Lumbar disc disease Muscle spasm of back Abnormal gait Right leg swelling Surgical History History of cardiac catheterization H/O removal of cyst H/O hernia repair Family History Brother , age 46 [place] Myocardial infarctionMother Arthritis Diabetes HypertensionFather Arthritis Diabetes HypertensionOther Heart disease Social History household members: spouse Smoking Status: Former smoker alcohol intake: current alcohol intake frequency: a few times a week substance use type: does not use what type of physical activity do you participate in: walking HPI lumbar spine Details: This documentation accurately reflects the service provided and the decisions made by me, Dr. Jj Alfaro MD 12/13/24 0904. Part of today?s visit was documented by [ ], acting as scribe. MIKE TORIBIO is a 69 year old M here today for preop evaluation for surgery scheduled later this month which is an L4-5 and L5-S1 left laminotomy decompression. He continues to have significant low back pain radiation to left lower extremity with predominantly weakness developing after walking certain distance and inability to continue to walk. 07/18/24: MIKE TORIBIO is a 69 year old M here today NEW patient for low back pain. He states he xie been having pain off and on for 5 years. He states that 6 weeks ago he just woke up and couldn't walk normal. He does ambulate with a cane and has used it off and on for the last couple of years. Holds the cane in his left hand. He states that his left leg is his main concern. He limps and feels like he has to drag the leg. He can walk about 100 steps before his foot starts dragging. He does have radiating pain down the leg and occasional tingling that will go down to his foot. He states that Dr. Abbasi did give him injections as well as Dr. Pearson and the injection were helping but not anymore. Last injection by Dr. Pearson was around 3 years ago. He has done PT [address] [facility] and does still do some of the exercises at home. Patient did have an MRI of the lumbar spine on 06/03/24. Denies dexterity issues. Per Dr Abbasi office patient had a injection in his hip on 05/21. They states they sent him to Dr Wilkins office and Dr Wilkins didn't do any injections. Ortho Exam General General: Yes no acute distress Neurologic: Yes alert and Yes oriented x3 Spine SPINE TESTING CERVICAL THORACIC LUMBAR Musculoskeletal Strength 0=absent - 5=normal Details: Neurological exam of the lower extremities shows 5x5 power. Normal sensations across all dermatomes. No hyperreflexia. No clonus. No midline or paraspinal tenderness. Passive straight leg raise negative. Coding Level of Care Code Off vis,est,level 4 Diagnoses Spinal stenosis of lumbar region with neurogenic claudication M48.062 Time Spent (min) 35 Assessment and Plan Assessment and Plan (1) Spinal stenosis of lumbar region with neurogenic claudication: Status: Acute Plan Obtained and reviewed imaging today with the patient and reviewed prior lumbar from May 2024. MRI shows moderate central spinal stenosis at L4-5, severe lateral recess stenosis at L4-5 and L5-S1 on the left side. Imaging shows DISH over multiple levels of the thoracic to lumbar spine. Disc height is relatively well maintained. No instability on flexion/extension views. Patient has had continued to have a progressively worsening functional issues over the last 4 years, pain worsening in the last 2 months. He is able to walk about 100 steps after which his foot starts to drag and feel weak. He denies any falls. He has tried physical therapy and pain injections in the past with no benefit. Discussed options at this time which include more physical therapy, injections with pain management, or surgery. Patient wishes to discuss surgery. Surgical options were discussed including decompression alone versus decompression and fusion. While patient does have significant axial back pain, his left lower extremity radiation and weakness and claudication seem to be of significant concern and these have been worsening over the last 2 months. I recommend L4-5 and L5-S1 left laminotomy decompression surgery. All risk benefits and alternatives were discussed in detail. Risks include but are not limited to infection, bleeding, hematoma formation, injury to nerves and vessels, nerve stretch injury, foot drop, nerve root injury, persistent pain, persistent numbness and weakness, DVT, pulm embolism, pneumonia, atelectasis, cardiopulmonary event, need for fusion, need for further procedures. Patient understands and agrees to proceed with surgery. Consent was signed. Patient wishes to go home the same day after the surgery. Explained to him that because of his cardiac issues we may have to keep him overnight for monitoring, unless anesthesia goes well and there is no need for monitoring. Patient understands.
[2024-12-25] MEDS: Cefazolin 2 GM in Syringe 10 ML IV (07:30)
[2024-12-25] MEDS: TRANEXAMIC ACID 1,000 MG in 0.9% Normal Saline (100mL Bag) 100 ML 440 MG IV ×2 (07:40→09:04)
--- NOTE | 2024-12-25 07:40 | RAD_ITS ---
PROCEDURE: Intraoperative fluoroscopic services. REASON FOR EXAM: LAMINECTOMY DECOMPRESSION L4-5, L5-S1, LT TECHNIQUE: Fluoroscopic services provided. We are going to start Lymphoseek studies 1 mGy COMPARISON: None FINDINGS: Needle is position along the posterior aspect of the L5-S1 disc space level. RAD/Lumbar Spine 2 or 3 Views IMPRESSION: Localization needle is seen posterior to the L5-S1 down to 1 disc space level. Reading Location: [facility]
[2024-12-25 08:20] LABS: Bedside Glucose 151 mg/dL (74-106)
[2024-12-25] MEDS: Ropivacaine 0.5% 30 ML Vial (09:08)
--- NOTE | 2024-12-25 09:37 | OP.PCM_ITS ---
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, radiculopathy, neurogenic claudication Post-Operative Diagnosis: Same Surgery/Procedure Performed: L4-5, L5-S1 left hemilaminectomy manager storage: Yes Piece Cutter: Polina Juarez Tasks completed by broker assistant: Closing, Removing tissue, Hemostasis: Electrocautery and Retracting Type of Anesthesia: General RN Documented Start/Stop Times: Operation Date: 12/25/24 07:30 Case Time Into Pre-Op 12/25/24 05:46 Out of Pre-Op 12/25/24 07:27 Anesthesia Start 12/25/24 07:30 Into Room 12/25/24 07:30 Procedure Start 12/25/24 07:58 Procedure End 12/25/24 09:34 Procedure Start Time: 07:58 Procedure Stop Time: 09:34 Select all DRAINS/GRAFTS/IMPLANTS that apply: None Estimated Blood Loss: 20 cc Specimen collected: No Description of surgery: Preoperative diagnosis: L4-5, L5-S1 left lateral recess and foraminal stenosis, radiculopathy, neurogenic claudication Postoperative diagnosis: Same Name of procedure: L4-5, L5-S1 left Hemilaminectomy -L4-5 left hemilaminectomy CPT 40034 -L5-S1 left hemilaminectomy CPT 52159 Attending Surgeon: Dr. Jj Alfaro Estimated blood loss: 20 mL Anesthesia: General Indications: Patient is a 69-year-old gentleman who presented with low back pain and left lower extremity lesion, with difficulty walking distances and neurogenic claudication. 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 All options of treatment were discussed which included continued nonoperative treatment measures like rest physical therapy, injections. After prolonged nonsurgical treatment, patient requested surgical intervention for laminectomy. All risks and benefits associated with the procedure were explained to the patient. The risks include but are not limited to infection, bleeding, injury to nerves and vessels, persistent paresthesia, incidental dural tear, recurrent disc herniation, spinal instability and need for fusion or other procedures in future, persistent pain, persistent weakness and numbness, etc. Procedure: The patient was identified in the preoperative holding suite using Unique patient identifiers. Skin was marked, consent was reviewed, and all questions were answered. The patient was then brought back to the operative room. A surgical timeout was performed to make sure correct procedure was being done on the correct patient and all operative room staff were on the same page. General endotracheal anesthesia was then given to the patient. The patient was then turned prone onto a Miguel table over a Amor frame. The back was prepped and draped in usual fashion. Preoperative antibiotic was given. A final timeout was then again done just before starting the procedure. An 18-gauge spinal needle was inserted and level was identified. An incision was then carried out in the midline. Bovie was utilized to dissect through the subcutaneous tissue up to the fascia. The fascia was bovied at the spinous process. Subperiosteal dissection was carried out along the left side of the spinous process and the lamina. This dissection was stopped at the level of the medial capsule of the facet joint. Lateral edge of the pars was also identified. A [place] was then placed under the inferior edge of the lamina and a C-arm lateral view was repeated. The level was confirmed to be the L4-5 interspace. A Ortega retractor of appropriate depth was then placed to provide retraction throughout the remainder of the surgery. Bur was utilized to create a hemilaminectomy window on the left side starting at L4-5. Care was taken to preserve at least 1 cm of bone from the lateral border of the pars. The thinned out lamina was then removed with the help of [place] rongeurs. The flavum was utilized to protect the dura and superior articular process was carefully from the flavum. Partial medial facetectomy was performed to provide adequate lateral recess and foraminal decompression. Superior portion of L5 lamina was also removed with help of [place]. All of the flavum was eventually removed. The procedure of left hemilaminectomy was repeated for L5-S1 similarly. Once decompression was adequately assessed with [place] in the left L4, L5 and S1 foramina, irrigation was done with normal saline. Valsalva maneuver up to 40 mmHg pressure sustained was then done by anesthesia for a few seconds to confirm no dural leak. Irrisept was kept in the wound for 1 minute and then rinsed with saline. A small piece of Gelfoam was then placed over the bony window. The Ortega retractor was then removed. And closure was done in layers, 0 Vicryl for the deep fascia, 2-0 Vicryl for subcutaneous tissue, and soham for the skin. The deep fascial layer was closed in a watertight fashion with interrupted 0 Vicryl augmented with strata fix. 4 x 4 gauze was then placed over the wound covered with Tegaderm. The patient was then turned supine onto a hospital bed. The patient was extubated and taken to PACU in stable condition. The patient tolerated the procedure well and no complications occurred. Estimated blood loss for the entire surgery was 20 mL. No instrumentation was utilized in this case. No dural tear occurred in this case. I was present for the entirety of the case and performed the surgery myself. Waste Management Recycling Technician Polina Juarez PA-C. My physician maintenance assistant was a vital part of this case. They were important in appropriate retraction during the case, and protection of soft tissues during the procedure. Their intimate knowledge of the case and my steps aided in safe and expedient completion of the procedure as well as appropriate position of the patient during the surgery. They were also vital in assisting with closure under my direct supervision. Surgical Findings: See operative note Complications Complications: No
--- NOTE | 2024-12-25 09:50 | PCM.POST.ANE ---
Anesthesia: Postop Eval I Current Vital Signs Temperature: 97.4 F Pulse Rate: 67 Blood Pressure: 124/75 Respiratory Rate: 16 Pulse Ox: 98 Assessment Airway patent: Yes Spontaneous unlabored respirations: Yes nausea: No Vomiting: No Anesthesia Complication: No Fluid Hydration Crystalloid volume administer (ml): 1,500 Total IV fluid infused: 1,500 Progress Note Anesthesia document: Postop Eval 1 completed: Yes
[2024-12-25 10:10] LABS: Bedside Glucose 109 mg/dL (74-106)
[2024-12-25] MEDS: HYDROcodone Bitartrate/Apap 5/325 Tablet PO (11:38)
--- NOTE | 2024-12-25 14:10 | POSTOPAN2_ITS ---
Anesthesia Postop Eval I Sum Postop Eval Completion status Anesthesia document: Postop Eval 1 completed: Yes Anesthesia Postop Eval I Summary Anesthesia Postop Eval I Summary: Anesthesia Postop Eval I: Assessment Summary Airway patent Yes 12/25/24 09:50 [email or web address] Spontaneous unlabored Yes 12/25/24 09:50 [email or web address] respirations Mental status nausea No 12/25/24 09:50 [email or web address] Vomiting No 12/25/24 09:50 [email or web address] Anesthesia Postop Eval I: Fluid Summary Crystalloid volume administer 1,500 12/25/24 09:50 [email or web address] (ml) Colloids volume administered ( ml) Blood Product volume administered (ml) Total IV fluid infused 1,500 12/25/24 09:50 [email or web address] Anesthesia Postop Eval I: Summary Notes Anesthesia Complication No 12/25/24 09:50 [email or web address] Anesthesia Complication Comment: Post-operative progress note Anesthesia: Postop Eval II Evaluation Mental status: Awake Pain Level: 3 nausea: No Vomiting: No
--- NOTE | 2024-12-25 14:10 | PCM.POSTANE2 ---
Anesthesia Postop Eval I Sum Postop Eval Completion status Anesthesia document: Postop Eval 1 completed: Yes Anesthesia Postop Eval I Summary Anesthesia Postop Eval I Summary: Anesthesia Postop Eval I: Assessment Summary Airway patent Yes 12/25/24 09:50 ELEMENTARY EDUCATION [email or web address] Spontaneous unlabored Yes 12/25/24 09:50 ELEMENTARY EDUCATION [email or web address] respirations Mental status nausea No 12/25/24 09:50 ELEMENTARY EDUCATION [email or web address] Vomiting No 12/25/24 09:50 ELEMENTARY EDUCATION [email or web address] Anesthesia Postop Eval I: Fluid Summary Crystalloid volume administer 1,500 12/25/24 09:50 ELEMENTARY EDUCATION [email or web address] (ml) Colloids volume administered ( ml) Blood Product volume administered (ml) Total IV fluid infused 1,500 12/25/24 09:50 ELEMENTARY EDUCATION [email or web address] Anesthesia Postop Eval I: Summary Notes Anesthesia Complication No 12/25/24 09:50 ELEMENTARY EDUCATION [email or web address] Anesthesia Complication Comment: Post-operative progress note Anesthesia: Postop Eval II Evaluation Mental status: Awake Pain Level: 3 nausea: No Vomiting: No
== END 2024-12-25 12:06 | disposition home or self-care (01) ==
LOC: SDC 05:30 → AC 05:31
PROVIDERS: PCP Family Medicine Geriatric Medicine; Referring Provider Orthopaedic Surgery Orthopaedic Surgery of the Spine; Visit Provider Orthopaedic Surgery Orthopaedic Surgery of the Spine
PROC: (CPT 63030; principal; 2024-12-25 07:00)
DX: M48.062 Spinal stenosis, lumbar region with neurogenic claudication (principal); M48.07 Spinal stenosis, lumbosacral region; M54.17 Radiculopathy, lumbosacral region; I25.10 Atherosclerotic heart disease of native coronary artery without angina pectoris; K21.9 Gastro-esophageal reflux disease without esophagitis; Z87.891 Personal history of nicotine dependence; Z79.82 Long term (current) use of aspirin; Z79.899 Other long term (current) drug therapy
CPT/HCPCS: 63047; 63048; 00630; 36415; 72100; 76000; 82962; 86703; 86850; 86900; 86901; 87081; J2405; J3475

== ENCOUNTER → 2025-06-26 | Outpatient (CLI) | payer MEDICARE, OTHER, SELFPAY ==
[2025-06-26 09:41] LABS: Hematocrit 44.0 % (40-54); Hemoglobin 15.2 g/dL (13.0-16.5); Immature Granulocytes Count 0.060 X10^3/uL (0.0-0.0); Mean Corp Hgb Conc 34.5 g/dL (32-36); Mean Corpuscular Volume 91.1 fL (80-94); Mean Platelet Vol. 9.9 fl (6.2-12.0); NRBC Flagged by Analyzer 0 % (0-5); Platelet Count 323 K/mm3 (150-450); RBC Distribution Width CV 13.2 % (11.6-14.6); RBC Distribution Width SD 44.8 fl (35.1-43.9); Red Blood Count 4.83 M/mm3 (4.6-6.2); White Blood Count 7.9 K/mm3 (4.4-11.0)
[2025-06-26 10:58] LABS: AST(SGOT) 34 U/L (<=37); Alanine Aminotransfer ALT/SGPT 47 U/L (<=46); Albumin, Serum 4.2 g/dL (3.4-4.8); Alkaline Phosphatase 79 U/L (40-129); Anion Gap 13 (5-15); BUN 13 mg/dL (4-19); BUN/Creat Ratio 14.7 RATIO (10-20); Calcium,Total 8.9 mg/dL (7.6-11.0); Carbon Dioxide 24.1 mmol/L (21.0-32.0); Chloride 99 mmol/L (98-108); Globulin 2.3 g/dL (2.2-4.2); Glucose 128 mg/dL (70-99); Potassium 4.0 mmol/L (3.3-5.1); Vitamin D,25 Hydroxy 36.9 ng/mL (30-100)
[2025-06-26 17:09] LABS: Xtra Tube Kwok EXTRA TUBE
== END | disposition home or self-care (01) ==
LOC: POLAB3 09:09
PROVIDERS: PCP Family Medicine Geriatric Medicine; Visit Provider Family Medicine Geriatric Medicine
DX: I10 Essential (primary) hypertension (principal); E55.9 Vitamin D deficiency, unspecified
CPT/HCPCS: 36415; 80053; 82306; 84443; 85025